=== PATIENT | female | born 1960 | race Caucasian/White ===

== ENCOUNTER 2019-06-18 11:56 | Emergency (ER) | payer MEDICARE, MEDICAID, SELFPAY ==
[2019-06-18 12:06] VITALS: BP 106/75; PULSE 88; RESP 20; TEMP 37.5; O2SAT 95; BMI 32.5
--- NOTE | 2019-06-18 14:05 | XRR_ITS ---
PROCEDURE INFORMATION: Exam: XR Chest, 1 View Exam date and time: 06/18/2019 2:33 PM Age: 58 years old Clinical indication: Cough TECHNIQUE: Imaging protocol: XR of the chest Views: 1 view. COMPARISON: CR Chest 2 views* [id number] 03/04/2013 5:14 PM FINDINGS: Lungs: There is a circumscribed 14 mm calcified density in the right upper lobe this finding was present on prior examination appears similar No consolidation. Pleural space: Unremarkable. No pleural effusion. No pneumothorax. Heart/Mediastinum: Unremarkable. No cardiomegaly. Bones/joints: Unremarkable. XR/XR chest 1V portable [id number] IMPRESSION: Stable right upper lobe density Otherwise of No acute findings.
[2019-06-18 14:53] LABS: Basophils % 0.6 %; Hematocrit 42.8 % (37.0-47.0); Hemoglobin 13.8 g/dL (11.5-15.3); Lymphocytes # 0.8 10^3/uL (0.8-4.8); Lymphocytes % 23.9 %; Mean Corpuscular HGB Conc 32.2 g/dL (30.0-36.0); Mean Corpuscular Hemoglobin 29.2 pg (28.0-34.0); Mean Corpuscular Volume 90.7 fL (81-99); Mean Platelet Volume 10.5 fL (7.4-10.4); Monocytes # 0.6 10^3/uL (0.2-0.9); Monocytes % 15.7 %; Neutrophils # 2.1 10^3/uL (1.8-7.7); Neutrophils % 59.5 %; Nucleated Red Blood Cells % 0 %; Platelet Count 214 10^3/cmm (130-400); Red Blood Count 4.72 10^6/uL (4.1-5.3); Red Cell Distribution Width 12.9 % (12.1-15.1); White Blood Count 3.5 10^3/uL (4.0-10.0)
[2019-06-18 15:10] LABS: Alanine Aminotransferase 12 U/L (0-33); Albumin Level 4.6 g/dL (3.5-5.2); Alkaline Phosphatase 102 IU/L (35-105); Anion Gap 16.7 (5-19); Aspartate Amino Transferase 17 U/L (0-32); Blood Urea Nitrogen 5 mg/dL (6-20); Calcium 10.1 mg/dL (8.5-10.5); Carbon Dioxide 27 mmol/L (22-29); Chloride 97 mmol/L (98-107); Globulin 2.5 g/dL (1.3-4.6); Glomerular Filtration Rate 56.7 mL/min (90-130); Glucose 103 mg/dL (74-109); Lipase 22 U/L (13-60); Potassium 3.7 mmol/L (3.5-5.1); Sodium 137 mmol/L (136-145); Total Bilirubin 0.3 mg/dL (0.15-1.2); Total Protein 7.1 g/dL (6.6-8.7)
[2019-06-18 15:32] VITALS: BP 102/68; PULSE 78; RESP 14; TEMP 37.1; O2SAT 98
--- NOTE | 2019-06-18 15:40 | ED_ITS ---
HPI - General Adult General: Chief complaint: General Medical Stated complaint: Multiple complaints Time Seen by Provider: 06/18/19 15:32 History of Present Illness: HPI narrative: Patient comes in today with complaints of fatigue, malaise, body aches, cough, and changes in vision. Patient reports symptoms have been for the last 3 weeks with a cough. But over the last 2 to 4 days she has had increasing malaise and body aches. Patient appears mildly unwell. Patient appears in no pain at rest. Review of Systems Const: Reports: body aches Resp: Reports: non-productive cough Musc: Reports: joint pain PFSH ED PFSH: Statuses (acute, chronic, etc) shown below reflect problem list status as previously entered and may not be historically accurate Social History Smoking and tobacco status: former smoker Physical Exam Const: COMMON NORMALS: no apparent distress and oriented x3 GENERAL APPEARANCE: cooperative HENMT: COMMON NORMALS: normocephalic, external ears normal, EAC's normal, TM's normal bilaterally and external nose normal HEAD & SCALP: normal to inspection and normocephalic FACE & SINUS: normal facial exam NOSE: external nose normal GENERAL EAR: hearing not grossly impaired EXTERNAL EAR: Yes external ears normal EXTERNAL AUDITORY CANAL: EAC's normal TYMPANIC MEMBRANE: TM's normal bilaterally MOUTH: oral and palatal mucosa normal THROAT: posterior oropharynx normal Eye: COMMON NORMALS: PERRL and EOMs intact bilaterally PUPIL: Yes PERRL Neck/C-Spine: COMMON NORMALS: full ROM and no lymphadenopathy Lymph: LYMPHATIC: no lymphedema noted Chest: COMMONS NORMALS: inspection of chest normal and palpation of chest normal Resp: COMMON NORMALS: normal respiratory effort AUSCULTATION: wheezes and diminished lung sounds Cardio: COMMON NORMALS: regular rate and regular rhythm RATE: regular rate RHYTHM: regular rhythm GI: COMMON NORMALS: normal to inspection, nondistended, normoactive bowel sounds and non-tender : COMMON NORMALS: Yes no CVA tenderness BLADDER/KIDNEY EXAM: Yes no CVA tenderness Back/Pelvis: COMMON NORMALS: no CVA tenderness and thoracic and lumbar spine normal to inspection Extremity: COMMON NORMALS: normal to inspection GENERAL: No edema Neuro: COMMON NORMALS: oriented x3, moves all extremities and no focal motor deficits Psych: COMMON NORMALS: mental status grossly normal and cooperative Skin: COMMON NORMALS: no rashes or lesions noted GENERAL SKIN EXAM: no rashes or lesions noted Course Vital Signs: Vital signs: Vital Signs Temperature 98.7 F 06/18/19 15:32 Pulse Rate 78 06/18/19 15:32 Respiratory Rate 14 06/18/19 15:32 Blood Pressure 102/68 06/18/19 15:32 Pulse Oximetry 98 06/18/19 15:32 MDM - General Adult MDM Narrative: Medical decision making narrative: Patient comes in with cough and congestion for the last 3 weeks. Patient reports that she has had episodes of lightheadedness and with her coughing spells. Patient appears mildly unwell. Respirations are even lungs have wheezing and decreased breath sounds throughout. Skin is warm and dry color is pink. Vital signs are stable. With good pulse oxygenation. Differential diagnosis includes pneumonia, exacerbation of COPD, bronchitis, dehydration, urinary tract infection, sepsis. Laboratory values were insignificant. Chest x-ray noted no infiltrates. Recommended treatment for acute bronchitis secondary to COPD. Patient was given a dose of dexamethasone in the ER with doxycycline to follow. Patient was recommended to follow-up in 1 week with primary care and to continue with inhaler as directed. Patient reported understanding agreed to plan. Lab Data: Labs: Lab Results 06/18/19 06/18/19 06/18/19 Range/Units 14:43 14:43 15:40 WBC 3.5 L (4.0-10.0) 10^3/ uL RBC 4.72 (4.1-5.3) 10^6/u L Hgb 13.8 (11.5-15.3) g/dL Hct 42.8 (37.0-47.0) % MCV 90.7 (81-99) fL MCH 29.2 (28.0-34.0) pg MCHC 32.2 (30.0-36.0) g/dL RDW 12.9 (12.1-15.1) % Plt Count 214 (130-400) 10^3/c mm MPV 10.5 H (7.4-10.4) fL Neut % (Auto) 59.5 % Lymph % (Auto) 23.9 % [place] % (Auto) 15.7 % Eos % (Auto) 0.0 % Baso % (Auto) 0.6 % Neut # (Auto) 2.1 (1.8-7.7) 10^3/u L Lymph # (Auto) 0.8 (0.8-4.8) 10^3/u L [place] # (Auto) 0.6 (0.2-0.9) 10^3/u L Eos # (Auto) 0.0 (0.0-0.8) 10^3/u L Baso # (Auto) 0.0 (0.0-0.1) 10^3/u L Nucleated RBC % (a uto) 0 % Nucleated RBCs # 0.0 /100WBC Sodium 137 (136-145) mmol/L Potassium 3.7 (3.5-5.1) mmol/L Chloride 97 L (98-107) mmol/L Carbon Dioxide 27 (22-29) mmol/L Anion Gap 16.7 (5-19) BUN 5 L (6-20) mg/dL Creatinine 1.0 H (0.5-0.9) mg/dL GFR Calculation 56.7 L (90-130) mL/min Glucose 103 (74-109) mg/dL Calcium 10.1 (8.5-10.5) mg/dL Total Bilirubin 0.3 (0.15-1.2) mg/dL AST 17 (0-32) U/L ALT 12 (0-33) U/L Alkaline Phosphata se 102 (35-105) IU/L Total Protein 7.1 (6.6-8.7) g/dL Albumin 4.6 (3.5-5.2) g/dL Globulin 2.5 (1.3-4.6) g/dL Lipase 22 (13-60) U/L Urine Color Yellow (Yellow) Urine Appearance Sl hazy (CLEAR) Urine pH 5 (5-7) Ur Specific Gravit y 1.020 (1.005-1.030) Urine Protein 1+ H (Negative) Urine Glucose (UA) Norm (Normal) Urine Ketones Negative (Negative) Urine Occult Blood 3+ H (Negative) Urine Nitrate Negative (Negative) Urine Bilirubin Neg (NEGATIVE) Urine Urobilinogen Norm (Negative) mg/dL Ur Leukocyte Bianca ase Trace H (Negative) Urine RBC 15-25 H (0-2) /hpf Urine WBC 15-25 H (0-5) /hpf Ur Squamous Epith Cells 10-15 H (0-5) Urine Bacteria 1+ H (NONE) Hyaline Casts 0-4 H Urine Mucus 1+ Influenza Type A A g (Negative) POC Influenza B Ag (Negative) 06/18/19 Range/Units 15:40 WBC (4.0-10.0) 10^3/ uL RBC (4.1-5.3) 10^6/u L Hgb (11.5-15.3) g/dL Hct (37.0-47.0) % MCV (81-99) fL MCH (28.0-34.0) pg MCHC (30.0-36.0) g/dL RDW (12.1-15.1) % Plt Count (130-400) 10^3/c mm MPV (7.4-10.4) fL Neut % (Auto) % Lymph % (Auto) % [place] % (Auto) % Eos % (Auto) % Baso % (Auto) % Neut # (Auto) (1.8-7.7) 10^3/u L Lymph # (Auto) (0.8-4.8) 10^3/u L [place] # (Auto) (0.2-0.9) 10^3/u L Eos # (Auto) (0.0-0.8) 10^3/u L Baso # (Auto) (0.0-0.1) 10^3/u L Nucleated RBC % (a uto) % Nucleated RBCs # /100WBC Sodium (136-145) mmol/L Potassium (3.5-5.1) mmol/L Chloride (98-107) mmol/L Carbon Dioxide (22-29) mmol/L Anion Gap (5-19) BUN (6-20) mg/dL Creatinine (0.5-0.9) mg/dL GFR Calculation (90-130) mL/min Glucose (74-109) mg/dL Calcium (8.5-10.5) mg/dL Total Bilirubin (0.15-1.2) mg/dL AST (0-32) U/L ALT (0-33) U/L Alkaline Phosphata se (35-105) IU/L Total Protein (6.6-8.7) g/dL Albumin (3.5-5.2) g/dL Globulin (1.3-4.6) g/dL Lipase (13-60) U/L Urine Color (Yellow) Urine Appearance (CLEAR) Urine pH (5-7) Ur Specific Gravit y (1.005-1.030) Urine Protein (Negative) Urine Glucose (UA) (Normal) Urine Ketones (Negative) Urine Occult Blood (Negative) Urine Nitrate (Negative) Urine Bilirubin (NEGATIVE) Urine Urobilinogen (Negative) mg/dL Ur Leukocyte Bianca ase (Negative) Urine RBC (0-2) /hpf Urine WBC (0-5) /hpf Ur Squamous Epith Cells (0-5) Urine Bacteria (NONE) Hyaline Casts Urine Mucus Influenza Type A A g Negative (Negative) POC Influenza B Ag Negative (Negative) Discharge Plan Discharge Patient Disposition: Home, Self-Care Clinical Impression: Acute bronchitis due to infection Condition: Stable Prescriptions: New meclizine 25 mg tablet 25 mg PO TID PRN (Reason: dizziness) Qty: 20 RF: 0 doxycycline hyclate 100 mg tablet 100 mg PO BID 10 Days Qty: 20 RF: 0 No Action fluoxetine [Prozac] 40 mg capsule 40 mg PO QAM Qty: 30 RF: 3 alprazolam [Xanax XR] 3 mg tablet extended release 24 hr 3 mg PO QAM Qty: 30 RF: 3 Discharge Orders: Discharge Order (Routine); Ordered 06/18/19 Ordered By: Clyde Gay Referrals: Kamran Jiang MD [Primary Care Provider] - Discharge Diet: Usual diet Discharge Activity: Increase activity as tolerated Activity Restrictions/Additional Instructions: Drink plenty of fluids Activity as tolerated Healthy diet Stop smoking Use inhaler as directed Follow-up with primary care Coding Level of Care Code ED Certified Personal Finance Counselor for Chg Fwd Exam Problem Focused
[2019-06-18 15:59] LABS: Glucose Urine UA Norm (Normal); Ketones Urine Negative (Negative); Protein Urine 1+ (Negative); Urine Appearance SL Hazy (CLEAR); Urine Color Yellow (Yellow); pH Urine 5 (5-7)
[2019-06-18 16:00] LABS: Add Urine Microscopic? YES; Bilirubin Urine Neg (NEGATIVE); Blood Urine 3+ (Negative); Leukocyte Esterase Urine Trace (Negative); Nitrate Urine Negative (Negative); Urobilinogen Urine Norm (Negative)
[2019-06-18 16:07] LABS: Hyaline Casts Urine 0-4; Mucus Urine 1+
[2019-06-18 16:09] LABS: Bacteria Urine 1+; RBC Urine 15-25 /hpf (0-2); WBC Urine 15-25 /hpf (0-5)
[2019-06-18 16:10] LABS: Add Urine Culture? Yes
[2019-06-18] MEDS: dexamethasone 10 mg/mL INJ IM (16:25)
[2019-06-18] MEDS: doxycycline 100 mg Tablet PO (16:28)
[2019-06-18 16:44] LABS: Influenza A by IFA Negative (Negative); Influenza B by IFA Negative (Negative)
[2019-06-18 17:13] VITALS: BP 102/78; PULSE 80; RESP 14; TEMP 36.4; O2SAT 99
== END 2019-06-18 16:30 | disposition home or self-care (01) ==
PROVIDERS: Emergency Medicine; Emergency Provider Nurse Practitioner Family; Family Provider Family Medicine; PCP Family Medicine
DX: J20.8 Acute bronchitis due to other specified organisms (principal); Z87.891 Personal history of nicotine dependence
CPT/HCPCS: 36415; 71045; 80053; 81001; 83690; 85025; 87086; 87804; 96372; 99282; J1100

== ENCOUNTER → 2019-06-29 09:51 | Outpatient (BNVA) | payer MEDICARE, MEDICAID, SELFPAY | PROVIDERS: Family Provider Family Medicine; PCP Family Medicine; Visit Provider Psychiatry & Neurology Psychiatry | DX: F33.42 Major depressive disorder, recurrent, in full remission (principal); F41.0 Panic disorder [episodic paroxysmal anxiety]; F17.200 Nicotine dependence, unspecified, uncomplicated | CPT/HCPCS: 99213 ==

== ENCOUNTER 2019-06-29 11:11 | Emergency (ER) | payer MEDICARE, MEDICAID, SELFPAY | END 2019-06-29 11:38 | disposition left against medical advice (07) | LOC: ER 15:01 | PROVIDERS: Emergency Provider Physician Assistant; Family Provider Family Medicine; PCP Family Medicine | DX: F33.9 Major depressive disorder, recurrent, unspecified (principal); F41.0 Panic disorder [episodic paroxysmal anxiety]; F17.200 Nicotine dependence, unspecified, uncomplicated; Z53.21 Procedure and treatment not carried out due to patient leaving prior to being seen by health care provider | CPT/HCPCS: 99281 ==

== ENCOUNTER → 2019-09-27 07:25 | Outpatient (BNVA) | payer MEDICARE, MEDICAID, SELFPAY | PROVIDERS: Family Provider Family Medicine; PCP Family Medicine; Visit Provider Psychiatry & Neurology Psychiatry | DX: F33.42 Major depressive disorder, recurrent, in full remission (principal); F41.0 Panic disorder [episodic paroxysmal anxiety]; F17.200 Nicotine dependence, unspecified, uncomplicated | CPT/HCPCS: 99213 ==

== ENCOUNTER 2019-10-12 10:09 | Outpatient (CLI) | payer MEDICARE, MEDICAID, SELFPAY ==
--- NOTE | 2019-10-12 10:17 | XR_ITS ---
WS: [id number] LEFT HIP HISTORY: hip pain COMPARISON: None available. LEFT hip: No acute fracture or dislocation. No significant narrowing of the joint space. No bone dest ruction. Mild inferior LEFT SI joint sclerosis. XR/XR hip LT 2-3V wo/w pel* [id number] IMPRESSION: 1. No hip fracture. 2. No significant arthritis LEFT hip.
== END 2019-10-12 10:10 | disposition home or self-care (01) ==
LOC: RADWPI 10:14
PROVIDERS: Family Provider Family Medicine; PCP Family Medicine; Visit Provider Family Medicine
DX: M25.552 Pain in left hip (principal)
CPT/HCPCS: 73502

== ENCOUNTER 2019-12-03 20:15 | Emergency (ER) | payer MEDICARE, MEDICAID, SELFPAY ==
--- NOTE | 2019-12-03 20:18 | XRR_ITS ---
PROCEDURE INFORMATION: Exam: XR Right Shoulder Exam date and time: 12/03/2019 8:18 PM Age: 59 years old Clinical indication: Right; Patient HX: RT shoulder pain, states she was moving furniture on November 23 and injured shoulder. ; Additional info: Injury TECHNIQUE: Imaging protocol: XR Right shoulder. Views: 2 or more views. COMPARISON: No relevant prior studies available. FINDINGS: Bones/joints: Normal. Heart/Mediastinum: Calcified right hilar nodes and/or mediastinal nodes and/or lung granulomas consistent with old granulomatous disease. Soft tissues: Normal. XR/XR shoulder RT min 2V* [id number] IMPRESSION: No acute findings.
[2019-12-03 20:29] VITALS: BP 132/63; PULSE 66; RESP 14; TEMP 37; O2SAT 98; BMI 32.8
--- NOTE | 2019-12-03 20:35 | ED_ITS ---
HPI - Neck Pain/Injury General: Chief Complaint: Neck Pain/Injury Stated Complaint: NECK PAIN; R SHOULDER PAIN Time Seen by Provider: 12/03/19 20:35 Source: patient Mode of arrival: ambulatory Limitations: no limitations History of Present Illness: HPI Narrative: Patient comes in with neck pain radiating into her right shoulder since 23 November. Patient states that she had moved some furniture by her self and since that time is had had shoulder and neck pain. Patient reports movement of her neck is limited due to the pain. Patient has normal range of motion of the right shoulder. Patient has been taking meloxicam, hydrocodone, and tizanidine with minimal relief. Patient appears well. Patient appears in mild to moderate pain. Review of Systems General: Reports: 10 or more systems reviewed and unremarkable except in HPI and below Musc: Reports: neck pain COUNTS INCLUDE 234 BEDS AT THE [facility] ED PFSH: Medical History (Updated 12/03/19 @ 21:18 by JEMIMA Ramirez) Current every day smoker Major depressive disorder, recurrent, in full remission Panic disorder [episodic paroxysmal anxiety] Social History Smoking and tobacco status: former smoker Physical Exam Const: COMMON NORMALS: no acute distress and patient oriented x3 GENERAL APPEARANCE: cooperative HENMT: COMMON NORMALS: normocephalic, TM's normal bilaterally and Normal external nose present HEAD & SCALP: normal to inspection and normocephalic NOSE: Normal external nose present TYMPANIC MEMBRANE: TM's normal bilaterally MOUTH: Normal oral and palatal mucosa present THROAT: posterior oropharynx normal Eye: GENERAL EYE: appearance normal, both eyes and all related structures Neck/C-Spine: CERVICAL SPINE: Yes Paracervical muscle tenderness right and Yes Trapezius muscle tenderness right Lymph: LYMPHATIC: no lymphadenopathy noted Chest: COMMONS NORMALS: normal inspection of the chest Resp: COMMON NORMALS: normal respiratory effort EFFORT & INSPECTION: Yes able to speak in complete sentences Cardio: COMMON NORMALS: regular rate and regular rhythm RATE: regular rate RHYTHM: regular rhythm GI: COMMON NORMALS: non-tender Back/Pelvis: COMMON NORMALS: thoracic and lumbar spine normal to inspection Extremity: COMMON NORMALS: normal to inspection Neuro: COMMON NORMALS: patient oriented x3 and moves all extremities Psych: COMMON NORMALS: mental status grossly normal and cooperative Skin: COMMON NORMALS: no rashes or lesions noted GENERAL SKIN EXAM: no rashes or lesions noted Course Vital Signs: Vital signs: Vital Signs Temperature 98.6 F 12/03/19 20:29 Pulse Rate 66 12/03/19 20:29 Respiratory Rate 14 12/03/19 20:29 Blood Pressure 132/63 12/03/19 20:29 Pulse Oximetry 98 12/03/19 20:29 MDM - Neck Pain/Injury MDM Narrative: Medical decision making narrative: She comes in for persistent right sided neck and trapezius pain for about 10 days. On exam patient has guarded range of motion of the neck. Palpable tenderness of the cervical spine paraspinous muscle, and trapezius on the right side. Patient moves extremities well otherwise. Respirations are even lungs are clear to auscultation. Vital signs are normal. Differential diagnosis includes but not limited to muscle strain, facet arthropathy, intervertebral disc disease, malingering. X-ray of the shoulder was negative for any abnormality. Patient was given a dose of ketorolac and orphenadrine in the emergency room to follow with diclofenac and cyclobenzaprine for pain. Patient was recommended to hold meloxicam and tizanidine while using the 2 new prescriptions. Patient reported understanding of care plan and need for follow-up. Discharge Plan Discharge Patient Disposition: Home, Self-Care Clinical Impression: Cervical radiculopathy Condition: Stable Prescriptions: New diclofenac potassium 50 mg tablet 50 mg PO TID PRN (Reason: pain) Qty: 14 RF: 0 cyclobenzaprine 10 mg tablet 10 mg PO TID Qty: 14 RF: 0 No Action omeprazole 20 mg capsule,delayed release(DR/EC) 20 mg PO BID RF: 0 triamcinolone acetonide 0.1 % ointment 1 applic TOPICAL DAILY Qty: 30 RF: 0 tizanidine [Zanaflex] 2 mg capsule 2 mg PO TID PRN (Reason: muscle spasticity) Qty: 20 RF: 0 multivitamin Tablet 1 tab PO DAILY RF: 0 alprazolam [Xanax XR] 3 mg tablet extended release 24 hr 3 mg PO QAM Qty: 30 RF: 3 fluoxetine [Prozac] 40 mg capsule 40 mg PO QAM Qty: 30 RF: 3 meloxicam 15 mg tablet 15 mg PO DAILY Qty: 30 RF: 3 hydrocodone-acetaminophen 5-325 mg tablet 1 tab PO Q12H PRN (Reason: pain) 30 Days Qty: 50 RF: 0 meclizine 25 mg tablet 25 mg PO TID PRN (Reason: dizziness) Qty: 20 RF: 0 Discharge Orders: Discharge Order (Routine); Ordered 12/03/19 Ordered By: Clyde Gay Referrals: Kamran Jiang MD [Primary Care Provider] - Discharge Diet: Usual diet Discharge Activity: Increase activity as tolerated Patient Instructions: Cervical Spine Strain (ED) Activity Restrictions/Additional Instructions: Drink plenty of water with medication. Gentle range of motion and stretching exercises. Sleep on a towel roll for extra neck support. Increase activity as tolerated. Take medications as directed. Follow-up with primary care in 1 week. Return to the ER for worsening symptoms or high fever. Coding Level of Care Code ED Retail Support Specialist for Tameka Fwrush Exam Comprehensive
[2019-12-03] MEDS: orphenadrine 30 mg/mL Inj 2 mL 60 MG IM (20:52)
[2019-12-03] MEDS: ketorolac 30 mg/mL INJ IM (20:52)
[2019-12-03 21:33] VITALS: BP 135/69; PULSE 78; RESP 16; O2SAT 78
== END 2019-12-03 21:35 | disposition home or self-care (01) ==
PROVIDERS: Emergency Provider Nurse Practitioner Family; Family Provider Family Medicine; PCP Family Medicine
DX: M54.12 Radiculopathy, cervical region (principal); Z87.891 Personal history of nicotine dependence
CPT/HCPCS: 12345; 73030; 96372; 99282; 99283; J1885; J2360

== ENCOUNTER 2019-12-21 12:53 | Outpatient (CLI) | payer MEDICARE, MEDICAID, SELFPAY ==
--- NOTE | 2019-12-21 14:00 | MR_ITS ---
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 Mild straightening of the normal cervical lordosis. Signal within the cervical cord is normal. Visualized posterior fossa is unremarkable. Craniocervical junction, C1 and C2 relationship, odontoid process and soft tissues are normal. C2-C3: Normal. C3-C4: Mild osteophytic ridging and annular disc bulging. Mild flattening of the ventral thecal sac. Moderate RIGHT foraminal stenosis due to disc osteophyte disease. Mild central stenosis. C4-C5: Mild annular disc bulging and osteophytic ridging. Near complete effacement of ventral CSF. Mi ld bilateral foraminal stenosis predominantly due to osteophyte disease. C5-C6: Mild osteophytic ridging and annular disc bulging. Disc osteophyte disease extends into the ayala barticular recesses and foramen. Mild central stenosis with moderate to severe bilateral foraminal st enosis. C6-C7: Mild annular disc bulging and small osteophytes. No significant stenosis. C7-T1: Normal. Paraspinal soft tissue are normal. MR/MR cervical spin wo con* [id number] IMPRESSION: 1. Mild central stenosis with moderate to severe bilateral foraminal stenosis at C5-6 due to disc osteophyte disease. 2. Mild central with moderate RIGHT foraminal stenosis at C3-4. 3. Mild central and bilateral foraminal stenosis at C4-5.
== END 2019-12-21 12:54 | disposition home or self-care (01) ==
LOC: RADWPI 12:59
PROVIDERS: Family Provider Family Medicine; PCP Family Medicine; Visit Provider Family Medicine
DX: M50.023 Cervical disc disorder at C6-C7 level with myelopathy (principal); M48.02 Spinal stenosis, cervical region
CPT/HCPCS: 72141

== ENCOUNTER → 2020-01-05 14:37 | Outpatient (BNVA) | payer MEDICARE, MEDICAID, SELFPAY | PROVIDERS: Family Provider Family Medicine; PCP Family Medicine; Visit Provider Licensed Practical Nurse | DX: M48.02 Spinal stenosis, cervical region (principal); M50.020 Cervical disc disorder with myelopathy, mid-cervical region, unspecified level | CPT/HCPCS: 99214 ==

== ENCOUNTER 2020-01-06 09:48 | Outpatient (CLI) | payer MEDICARE, MEDICAID, SELFPAY ==
--- NOTE | 2020-01-06 09:57 | CT_ITS ---
WS: [id number] CT CERVICAL SPINE TECHNIQUE: Noncontrast CT of the cervical spine with coronal and sagittal reformatted images. CLINICAL INFORMATION: Neck pain COMPARISON: MRI December 21, 2019 DLP: 662.[address] scans at [facility] use at least one of these dose optimization techniques: automat ed exposure control; mA and/or kV adjustment per patient size (includes targeted exams where dose is matched to clinical indication); or iterative reconstruction. FINDINGS: Straightening with slight reversal normal cervical lordosis. Disc bulging worse at C3-C4 C4-C5 and C5 -C6. No high-grade central canal stenosis. C2-C3: Normal. C3-C4: Mild disc osteophytic ridging. Moderate right foraminal narrowing. Mild facet arthropathy. Sha llow right pericentral protrusion with mild central canal stenosis. C4-C5: Disc osteophyte complex with endplate ridging. Mild central canal stenosis. Mild bilateral for aminal narrowing. C5-C6: Disc osteophyte complex with endplate ridging. Moderate central canal stenosis. Slight contact of the cervical cord. Severe bilateral bony foraminal narrowing. Moderate facet arthropathy. C6-C7: No significant disc bulging. Mild left and no significant right foraminal narrowing. Mild face t arthropathy. Spinal canal is patent. C7-T1: Normal Mild right T1-2 and left T2-[address]/CT cervical spin wo con* [id number] IMPRESSION: 1. Straightening with slight reversal normal cervical lordosis. 2. Moderate central canal stenosis C5-C6 due to disc osteophyte complex and sl ight contact of the cervical cord. 3. Moderate to severe bilateral bony foraminal narrowing C5-C6 appears unchang ed. 4. Small right pericentral protrusions at C3-C4 and C4-C5 with mild central ca nal stenosis. 5. Otherwise mild bony foraminal narrowing described above.
--- NOTE | 2020-01-06 10:30 | XRR_ITS ---
PROCEDURE INFORMATION: Exam: XR Cervical Spine, 2 or 3 Views Exam date and time: 01/06/2020 10:19 AM Age: 59 years old Clinical indication: Pain in neck transient tingling sensation TECHNIQUE: Imaging protocol: XR of the cervical spine, 2 or 3 views. COMPARISON: MR cervical spin wo con* [id number] 12/21/2019 2:02 PM FINDINGS: Vertebrae: The cervical vertebral bodies maintain height. No malalignment in the neutral position or in extension. Flexion occurs primarily at C4-C5. No spondylolisthesis. The spinolaminar line is intact. The facets align normally. There is disc degeneration at C5-C6. The atlantodens interval is not widened. No acute fracture. Soft tissues: No prevertebral soft tissue swelling. XR/XR cervical spine fl/ex [id number] IMPRESSION: Disc degeneration at C5-C6.
== END 2020-01-06 09:49 | disposition home or self-care (01) ==
LOC: RAD 09:54
PROVIDERS: PCP Family Medicine; Visit Provider Licensed Practical Nurse
DX: M50.322 Other cervical disc degeneration at C5-C6 level (principal); M48.02 Spinal stenosis, cervical region; M25.78 Osteophyte, vertebrae; M50.21 Other cervical disc displacement, high cervical region
CPT/HCPCS: 72040; 72125; 99214

== ENCOUNTER → 2020-01-25 08:30 | Outpatient (BNVA) | payer MEDICARE, MEDICAID, SELFPAY | PROVIDERS: PCP Family Medicine; Visit Provider Psychiatry & Neurology Psychiatry | DX: F41.0 Panic disorder [episodic paroxysmal anxiety] (principal); F33.42 Major depressive disorder, recurrent, in full remission; F17.200 Nicotine dependence, unspecified, uncomplicated | CPT/HCPCS: 99213 ==

== ENCOUNTER → 2020-05-23 07:32 | Outpatient (BNVA) | payer MEDICARE, MEDICAID, SELFPAY | PROVIDERS: PCP Family Medicine; Visit Provider Psychiatry & Neurology Psychiatry | DX: F33.42 Major depressive disorder, recurrent, in full remission (principal); F41.0 Panic disorder [episodic paroxysmal anxiety] | CPT/HCPCS: 99213 ==

== ENCOUNTER 2020-06-15 12:38 | Outpatient (CLI) | payer MEDICARE, MEDICAID, SELFPAY ==
--- NOTE | 2020-06-15 13:15 | XR_ITS ---
WS: [id number] PROCEDURE: XR chest 2V* [id number] CLINICAL INFORMATION: abnormal chest xray COMPARISON: June 18, 2019. Reported prominence of the left hilum on outside radiographa FINDINGS: Heart: Normal cardiac silhouette. Lungs: Moderate chronic emphysematous changes. Slight prominence of the left hilum similar to June 18, 2019. This may be vascular but could be further evaluated with chest CT. Chronic calcified granu radha right upper lobe unchanged. No acute pulmonary infiltrates. Aortic calcification. Bones: Mild thoracic kyphosis. Mild thoracic curve convex right. Postoperative changes lower cervical spine. XR/XR chest 2V* [id number] IMPRESSION: 1. Moderate chronic emphysematous changes. No acute pulmonary infiltrates. 2. Slight prominence of the left hilum similar to June 18, 2019. This may b e vascular but indeterminant. This can be further evaluated with chest CT for b avinash anatomic detail. 3. Stable calcified chronic granuloma right upper lobe.
== END 2020-06-15 12:39 | disposition home or self-care (01) ==
LOC: RADWPI 12:41
PROVIDERS: PCP Family Medicine; Visit Provider Family Medicine
DX: R93.89 Abnormal findings on diagnostic imaging of other specified body structures (principal); J84.10 Pulmonary fibrosis, unspecified
CPT/HCPCS: 71046

== ENCOUNTER → 2020-07-06 11:08 | Outpatient (BNVA) | payer MEDICARE, MEDICAID, SELFPAY | PROVIDERS: PCP Family Medicine; Visit Provider Surgery | DX: Z20.822 Contact with and (suspected) exposure to COVID-19 (principal); D17.1 Benign lipomatous neoplasm of skin and subcutaneous tissue of trunk; Z12.11 Encounter for screening for malignant neoplasm of colon | CPT/HCPCS: 87635 ==

== ENCOUNTER 2020-07-10 07:23 | Day surgery (SDC) | payer MEDICARE, MEDICAID, SELFPAY ==
[2020-07-07 14:31] VITALS: BMI 31.4
[2020-07-10 07:50] VITALS: BP 104/77; PULSE 78; RESP 18; TEMP 36.3; O2SAT 97
--- NOTE | 2020-07-10 07:54 | PC.NURSE ---
PT STATES PREP RETURN WAS BROWN WATER.
--- NOTE | 2020-07-10 07:58 | W.PM.OPSUD ---
Surgery/Procedure H&P Update DATE OF PROCEDURE: July 10, 2020 DATE H&P PERFORMED: 06/30/20 H&P UPDATE INFORMATION: I have reviewed H&P completed within last 30 days, I have examined patient prior to procedure and No changes to prior documentation PREOP DIAGNOSIS: Lipoma, screening PLANNED PROCEDURE: Operation Date: 07/10/20 09:30 Proposed Procedures p Colonoscopy [id number] Z12.11 D17.1(Not Applicable) - Elio Ricketts MD s Excision of lipomas to forearm back and forehad 66412 Z12.11 D17.1(Not Applicable) - Elio Ricketts MD
[2020-07-10] MEDS: sodium chloride 0.9% 1,000 ML 30 ML IV (08:19)
--- NOTE | 2020-07-10 08:37 | ANES.PREANE2 ---
Pre-Anesthetic Assessment Pre-Anesthetic Assessment: Height/Weight: Height 1.75 m Weight 96.615 kg Temp Pulse Resp BP Pulse Ox 97.4 F L 78 18 104/77 97 07/10/20 07:50 07/10/20 07:50 07/10/20 07:50 07/10/20 07:50 07/10/20 07:50 Preop Diagnosis: Lipoma, screening Proposed Procedure: Operation Date: 07/10/20 09:30 Proposed Procedures p Colonoscopy 69709 88355 Z12.11 D17.1(Not Applicable) - Elio Ricketts MD s Excision of lipomas to forearm back and forehad 63875 Z12.11 D17.1(Not Applicable) - Elio Ricketts MD Familial anesthetic complications: None Was Beta Chata taken within 24 hours: N/A Last intake: Intake Last Liquid Date 07/09/20 Last Liquid Time 19:30 Last Solid Date 07/09/20 Last Solid Time 12:00 Social: Social History: No alcohol and No tobacco Comment: former smoker, currently vapes Exam: Pre-Anes Outpt Exam: alert, oriented x 3, clear to auscultation bilaterally and regular rate & rhythm Airway: MP: 3 Dentition: Other (missing, discolored teeth) Pulmonary: Comments: emphysema GI: GI: GERD Anesthetic Plan: ASA status: 2 Anesthesia: MAC Risk of > 500 ml blood loss (7ml/kg in children): No Meds/Allergies Current Medications: Current Medications Generic Name Dose Route Start Last Admin Trade Name Freq PRN Reason Stop Dose Admin Sodium Chloride 1,000 mls @ 30 ml s/hr 07/10/20 07:45 07/10/20 08:19 Sodium Chloride 0.9% IV 07/11/20 07:44 30 mls/hr .Q24H ROBERTO Administration PFSH Anesthesia PFSH: Medical History (Updated 06/30/20 @ 09:52 by Elio Ricketts MD) Eroded bladder suspension mesh Major depressive disorder, recurrent, in full remission Panic disorder [episodic paroxysmal anxiety] Stenosis of cervical spine with myelopathy Surgical History History of cholecystectomy History of total hysterectomy Family History Brother Cancer Father Cancer Social History Smoking and tobacco status: former smoker Alcohol intake: never Household members: family Marital status: Current occupational status: disabled History of recent travel: No Data Anesthesia Cardiac Studies: No Data to Display
[2020-07-10 12:12] VITALS: BP 131/77; PULSE 72; RESP 16; TEMP 36.3; O2SAT 96
[2020-07-10 12:36] VITALS: BP 123/80; PULSE 61; RESP 18; O2SAT 99
--- NOTE | 2020-07-10 12:53 | P.OP_ITS ---
Operative Report Date of procedure: July 10, 2020 Pre-op Diagnosis: 1. Screening colonoscopy 2. Lipoma right upper back measuring 2 x 2 cm 3. Lipoma right lower back measuring 4 x 4 cm 4. Lipoma right forearm measuring 2 x 2 cm 5. Lipoma right temporal area measuring 3 x 3 cm Post-op Diagnosis: 1. Normal colonoscopy, except internal hemorrhoids and hyperplastic polyps in the rectum 2. Lipoma right upper back measuring 2 x 2 cm 3. Lipoma right lower back measuring 4 x 4 cm 4. Lipoma right forearm measuring 2 x 2 cm 5. Lipoma right temporal area measuring 3 x 3 cm Procedure Done: 1. Colonoscopy past clinic flexure without biopsy 2. Excision of lipoma right upper back measuring 2 x 2 cm 3. Excision of lipoma right lower back measuring 4 x 4 cm 4. Excision of lipoma right forearm measuring 2 x 2 cm 5. Excision of lipoma right temporal area measuring 3 x 3 cm Specimens removed/disposition: 1. lipoma right upper back measuring 2 x 2 cm 2. lipoma right lower back measuring 4 x 4 cm 3. lipoma right forearm measuring 2 x 2 cm 4. lipoma right temporal area measuring 3 x 3 cm Surgeon: Elio Ricketts Anesthesia: General Condition: stable Disposition: same day Procedure: The patient was taken to the operating room and placed in left lateral position under MAC a digital rectal exam revealed small internal hemorrhoids. The colonoscope was introduced and advanced up to cecum with ileocecal valve and appendicular orifice was visualized. The colon prep was fair. Cecum: Normal Ascending colon: Normal Transverse colon: Normal Descending colon: Normal Sigmoid colon: Normal Rectum: Couple of hyperplastic polyps Internal hemorrhoids on retroflexion The colonoscope was withdrawn. The area around the 4 subcutaneous masses on the back, right temporal area and right forearm was prepped and draped in a sterile manner. 1% lidocaine with 0.5% Marcaine was infiltrated around the lipoma on right upper back. Using 15 blade a 2 cm incision was made, subcutaneous tissue was divided using electrocautery and the lipoma was excised from the surrounding subcutaneous tissue and sent to pathology. Wound was irrigated, hemostasis ensured and subcutaneous tissues approximated using running 3-0 Vicryl suture and skin was closed using running subcuticular 4-0 Monocryl suture and surgical glue. 1% lidocaine with 0.5% Marcaine was infiltrated around the lipoma on right lower back. Using 15 blade a 4 cm incision was made, subcutaneous tissue was divided using electrocautery and the lipoma was excised from the surrounding subcutaneous tissue and sent to pathology. Wound was irrigated, hemostasis ensured and subcutaneous tissues approximated using running 3-0 Vicryl suture and skin was closed using running subcuticular 4-0 Monocryl suture and surgical glue. 1% lidocaine with 0.5% Marcaine was infiltrated around the lipoma. Using 15 blade a 2 cm incision was made, subcutaneous tissue was divided using electrocautery and the lipoma was excised from the surrounding subcutaneous tissue and sent to pathology. Wound was irrigated, hemostasis ensured and subcutaneous tissues approximated using running 3-0 Vicryl suture and skin was closed using running subcuticular 4-0 Monocryl suture and surgical glue. 1% lidocaine with 0.5% Marcaine was infiltrated around the lipoma. Using 15 blade a 3 cm incision was made, subcutaneous tissue was divided using electroca utery and the lipoma was excised from the surrounding subcutaneous tissue and sent to pathology. Wound was irrigated, hemostasis ensured and subcutaneous tissues approximated using running 3-0 Vicryl suture and skin was closed using running subcuticular 4-0 Monocryl suture and surgical glue.
--- NOTE | 2020-07-10 15:55 | ANE.PACU2 ---
Inpatient post-anesthesia follow up: Airway intact: Yes Vital signs: Temperature 97.3 F Pulse Rate 61 Respiratory Rate 18 Blood Pressure 123/80 Pulse Oximetry 99 Oxygen Delivery Me thod Room Air Oxygen Flow Rate Fraction of Inspir ed Oxygen Hydration adequate: Yes Nausea and vomiting: No Pain level: 2 Mental status: Baseline
== END 2020-07-10 12:56 | disposition home or self-care (01) ==
PROVIDERS: PCP Family Medicine; Visit Provider Surgery
PROC: 0DJD8ZZ Inspection of Lower Intestinal Tract, Via Natural or Artificial Opening Endoscopic (ICD-10-PCS; CPT 45378; principal; 2020-07-10 09:30)
PROC: (CPT 11402; 2020-07-10 09:30)
DX: Z12.11 Encounter for screening for malignant neoplasm of colon (principal); D12.8 Benign neoplasm of rectum; K64.8 Other hemorrhoids; D17.1 Benign lipomatous neoplasm of skin and subcutaneous tissue of trunk; D17.21 Benign lipomatous neoplasm of skin and subcutaneous tissue of right arm; D17.0 Benign lipomatous neoplasm of skin and subcutaneous tissue of head, face and neck; J43.9 Emphysema, unspecified; Z87.891 Personal history of nicotine dependence
CPT/HCPCS: 11402 ×2; 11404; 11443; 12034; 45378; 88304; J2704; J3010; J3490; J7030

== ENCOUNTER → 2020-09-05 07:27 | Outpatient (BNVA) | payer MEDICARE, MEDICAID, SELFPAY | PROVIDERS: PCP Family Medicine; Visit Provider Psychiatry & Neurology Psychiatry | DX: F33.42 Major depressive disorder, recurrent, in full remission (principal); F41.0 Panic disorder [episodic paroxysmal anxiety]; F17.200 Nicotine dependence, unspecified, uncomplicated | CPT/HCPCS: 99213 ==

== ENCOUNTER → 2020-11-02 12:01 | Outpatient (BNVA) | payer MEDICARE, MEDICAID, SELFPAY | PROVIDERS: PCP Family Medicine; Visit Provider Family Medicine | DX: F33.42 Major depressive disorder, recurrent, in full remission (principal); M54.12 Radiculopathy, cervical region; M50.00 Cervical disc disorder with myelopathy, unspecified cervical region; L01.00 Impetigo, unspecified; M23.206 Derangement of unspecified meniscus due to old tear or injury, right knee | CPT/HCPCS: 80053; 85025 ==

== ENCOUNTER 2020-12-25 11:04 | Outpatient (CLI) | payer MEDICARE, MEDICAID, SELFPAY ==
--- NOTE | 2020-12-25 11:00 | MM_ITS ---
WS: [id number] BILATERAL DIGITAL SCREENING MAMMOGRAPHY WITH CAD CLINICAL INFORMATION: screening HISTORY: Screening mammogram. No current complaints. History of left lumpectomy. COMPARISON: 3 ,019 and 1 ,019. TECHNIQUE: Bilateral CC and MLO views. FINDINGS: Scattered fibroglandular densities bilaterally. Stable ovoid densities left retroareola unchanged sin ce 2019. No suspicious focal mass, asymmetry, calcifications, or architectural distortion. No evidenc e of malignancy. MM/[place] [id number] IMPRESSION: BI-RADS: 2-Benign FOLLOW UP: 1 Year Follow-up Recommend return to annual screening mammography.
== END 2020-12-25 11:05 | disposition home or self-care (01) ==
PROVIDERS: PCP Family Medicine; Visit Provider Family Medicine
DX: Z12.31 Encounter for screening mammogram for malignant neoplasm of breast (principal)
CPT/HCPCS: 77067

== ENCOUNTER 2021-01-01 13:38 | Emergency (ER) | payer MEDICARE, MEDICAID, SELFPAY ==
--- NOTE | 2021-01-01 13:47 | XRR_ITS ---
PROCEDURE INFORMATION: Exam: XR Chest Exam date and time: 01/01/2021 1:47 PM Age: 60 years old Clinical indication: Cough with hemorrhage; Additional info: Hemoptysis TECHNIQUE: Imaging protocol: XR of the chest. Views: 1 view. COMPARISON: CR XR chest 2V* [id number] 06/15/2020 1:01 PM FINDINGS: Lungs: Right upper lobe calcified granuloma. Emphysematous changes suspected. Pleural spaces: Unremarkable. No pleural effusion. No pneumothorax. Heart/Mediastinum: Unremarkable. No cardiomegaly. Vasculature: Prominent left hilar region again seen similar to prior exam may be vascular in nature, a chest CT could further characterize this as previously discussed. Bones/joints: Unremarkable. XR/XR chest 1V portable [id number] IMPRESSION: 1. Negative for infiltrate. 2. Right upper lobe calcified granuloma. 3. Prominent left hilar region again seen similar to prior exam may be vascular in nature, a chest CT could further characterize this as previously discussed. 4. Emphysematous changes suspected.
[2021-01-01 15:15] VITALS: BP 129/72; PULSE 74; RESP 17; TEMP 37; O2SAT 95
[2021-01-01 16:57] LABS: Basophils # 0.1 10^3/uL (0.0-0.1); Basophils % 1.3 %; Eosinophils % 0.4 %; Hematocrit 44.9 % (37.0-47.0); Hemoglobin 14.1 g/dL (11.5-15.3); Lymphocytes # 2.1 10^3/uL (0.8-4.8); Lymphocytes % 30.5 %; Mean Corpuscular HGB Conc 31.4 g/dL (30.0-36.0); Mean Corpuscular Hemoglobin 29.6 pg (28.0-34.0); Mean Corpuscular Volume 94.1 fL (81-99); Mean Platelet Volume 10.6 fL (7.4-10.4); Monocytes # 0.5 10^3/uL (0.2-0.9); Monocytes % 6.7 %; Neutrophils # 4.16 10^3/uL (1.8-7.7); Neutrophils % 60.8 %; Nucleated Red Blood Cells % 0 %; Platelet Count 282 10^3/cmm (130-400); Red Blood Count 4.77 10^6/uL (4.1-5.3); Red Cell Distribution Width 13.1 % (12.1-15.1); White Blood Count 6.9 10^3/uL (4.0-10.0)
[2021-01-01 17:31] LABS: Alanine Aminotransferase 9 U/L (0-33); Albumin Level 4.5 g/dL (3.5-5.2); Alkaline Phosphatase 104 IU/L (35-105); Aspartate Amino Transferase 13 U/L (0-32); Blood Urea Nitrogen 5 mg/dL (8-23); Calcium 9.2 mg/dL (8.5-10.5); Carbon Dioxide 29 mmol/L (22-29); Chloride 102 mmol/L (98-107); Globulin 2.1 g/dL (1.3-4.6); Glomerular Filtration Rate 101.6 mL/min (90-130); Glucose 84 mg/dL (65-115); Osmolality Calculated 286 mOsm/kg (285-295); Sodium 140 mmol/L (136-145); Total Bilirubin 0.5 mg/dL (0.15-1.2); Total Protein 6.6 g/dL (6.6-8.7)
[2021-01-01 17:55] LABS: Anion Gap 12.9 (5-19); Potassium 3.9 mmol/L (3.5-5.1)
--- NOTE | 2021-01-02 00:11 | CTR_ITS ---
PROCEDURE INFORMATION: Exam: CTA Chest With Contrast Exam date and time: 01/02/2021 12:11 AM Age: 60 years old Clinical indication: Cough and shortness of breath; Additional info: SOB TECHNIQUE: Imaging protocol: Computed tomographic angiography of the chest with contrast. 3D rendering (Not supervised by radiologist): MIP and/or 3D reconstructed images were created by the technologist. Radiation optimization: All CT scans at this facility use at least one of these dose optimization techniques: automated exposure control; mA and/or kV adjustment per patient size (includes targeted exams where dose is matched to clinical indication); or iterative reconstruction. Contrast material: OMNI 350; Contrast volume: 70 ml; Contrast route: INTRAVENOUS (IV); COMPARISON: CR XR chest 1V portable [id number] 01/01/2021 2:59 PM RADIATION DOSE METRICS: Total DLP (mGy-cm): 556.26 FINDINGS: Pulmonary arteries: Normal. No pulmonary emboli. Aorta: Unremarkable. No aortic aneurysm. No aortic dissection. Lungs: Subtle bilateral largely upper lobe airspace opacities may reflect an infectious process. Metastatic disease is not excluded given a 15 mm more solid nodular area in the right upper lobe. Pleural spaces: Unremarkable. No pneumothorax. No pleural effusion. Heart: Unremarkable. No cardiomegaly. No pericardial effusion. Lymph nodes: Multiple enlarged left hilar to mediastinal lymph nodes measuring up to 3.8 cm somewhat encasing the hilar structures likely reflecting an underlying malignant process. Bones/joints: Unremarkable. No acute fracture. Soft tissues: Gallbladder appears surgically absent. CT/CT angio chest PE protcl [id number] IMPRESSION: 1. Multiple enlarged left hilar to mediastinal lymph nodes measuring up to 3.8 cm somewhat encasing the hilar structures likely reflecting an underlying malignant process. 2. Subtle bilateral largely upper lobe airspace opacities may reflect an infectious process. Metastatic disease is not excluded given a 15 mm more solid nodular area in the right upper lobe. Highly suspicious nodule(s). Consider non-emergent PET/CT, or tissue sampling.(Reference: Dariel). 3. Gallbladder appears surgically absent. REFERENCES: Dariel Anthony et al. Guidelines for Management of Incidental Pulmonary Nodules Detected on CT Images: From the Fleischner Society 2017. Radiology. 2017;284(1):228-243. Radiation Dose CTDIVOL = (mGy): DLP = 556.26 (mGy-cm)
--- NOTE | 2021-01-02 00:15 | ED_ITS ---
HPI - SOB/Dyspnea General: Chief Complaint: Shortness of Breath/Dyspnea Stated Complaint: NUMBNESS IN ARMS/COUGHING BLOOD/CHILLS/HOT FLASHES Time Seen by Provider: 01/02/21 00:04 Source: patient Mode of arrival: ambulatory Limitations: no limitations History of Present Illness: HPI Narrative: 60-year-old female who states that she had a cough for the last 3 to 4 days with concerns today she started having some hemoptysis. She denies any shortness of breath or fevers. Patient states she had neck x-ray earlier this year and she is been having some numbness to bilateral hands for months but states that has been chronic and that is not her main concern states she is mainly concerned with hemoptysis. Denies any chest pain. Patient is comfortable here. Associated symptoms: Reports hemoptysis; Deny abdominal pain, chest pain, fever(s), nausea or vomiting Review of Systems Const: Denies: fever(s), chills, body aches or change in appetite Eyes: Denies: blurry vision or eye discomfort ENMT: Denies: throat pain or dental pain Card: Denies: chest pain Resp: Reports: dyspnea, productive cough and hemoptysis GI: Denies: abdominal pain, nausea, vomiting or diarrhea : Denies: dysuria Musc: Denies: neck pain or back pain Skin/Breast: Denies: rash Neuro: Denies: headache(s) Psych: Denies: depression Jovon/Lymph: Denies: easy bruising All/Imm: Denies: urticaria PFSH ED PFSH: Medical History Eroded bladder suspension mesh Major depressive disorder, recurrent, in full remission Panic disorder [episodic paroxysmal anxiety] Stenosis of cervical spine with myelopathy Surgical History History of cholecystectomy History of total hysterectomy Status post colonoscopy (07/10/20) normal Status post excision of lipoma (07/10/20) Right forearm, back x2, right forehead Family History Brother Cancer Father Cancer Social History Smoking and tobacco status: former smoker Alcohol intake: never Household members: family Marital status: Current occupational status: disabled History of recent travel: No Physical Exam Const: COMMON NORMALS: no acute distress, patient oriented x3 and healthy appearing HENMT: COMMON NORMALS: normocephalic and atraumatic HEAD & SCALP: normocephalic and atraumatic Eye: COMMON NORMALS: Equal, round and reactive pupils present and EOMs intact bilaterally PUPIL: Yes Equal, round and reactive pupils present Neck/C-Spine: COMMON NORMALS: full ROM and supple Chest: COMMONS NORMALS: normal inspection of the chest and normal palpation of entire chest wall Resp: COMMON NORMALS: normal respiratory effort, No retractions, No use of accessory muscles and clear to auscultation bilaterally AUSCULTATION: clear to auscultation bilaterally Cardio: COMMON NORMALS: regular rate, regular rhythm and No murmurs present (Cardio) RATE: regular rate RHYTHM: regular rhythm GI: COMMON NORMALS: Normal to inspection, nondistended, normoactive bowel sounds present, Soft to palpation, non-tender and no masses PALPATION: Yes Soft to palpation Extremity: COMMON NORMALS: normal to inspection and full ROM Neuro: COMMON NORMALS: patient oriented x3, moves all extremities and no focal motor deficits Psych: COMMON NORMALS: mental status grossly normal, Normal thought process pr esent and cooperative THOUGHT PROCESS: Normal thought process present Skin: COMMON NORMALS: no rashes or lesions noted and no wounds GENERAL SKIN EXAM: no rashes or lesions noted Course Vital Signs: Vital signs: Vital Signs Temperature 98.6 F 01/01/21 15:15 Pulse Rate 74 01/01/21 15:15 Respiratory Rate 17 01/01/21 15:15 Blood Pressure 129/72 01/01/21 15:15 Pulse Oximetry 95 01/01/21 15:15 MDM - SOB/Dyspnea MDM Narrative: Medical decision making narrative: 60-year-old female presents here with hemoptysis with CT concerning for a mass with possible cancer. I informed her of her this formed I will get her follow-up with pulmonology as she needs a biopsy. Patient is well-appearing here not requiring any oxygen has no signs of pneumonia. Lab Data: Labs: Lab Results 01/01/21 01/01/21 Range/Units 16:51 16:51 WBC 6.9 (4.0-10.0) 10^3/ uL RBC 4.77 (4.1-5.3) 10^6/u L Hgb 14.1 (11.5-15.3) g/dL Hct 44.9 (37.0-47.0) % MCV 94.1 (81-99) fL MCH 29.6 (28.0-34.0) pg MCHC 31.4 (30.0-36.0) g/dL RDW 13.1 (12.1-15.1) % Plt Count 282 (130-400) 10^3/c mm MPV 10.6 H (7.4-10.4) fL Neut % (Auto) 60.8 % Lymph % (Auto) 30.5 % Throckmorton % (Auto) 6.7 % Eos % (Auto) 0.4 % Baso % (Auto) 1.3 % Neut # (Auto) 4.16 (1.8-7.7) 10^3/u L Lymph # (Auto) 2.1 (0.8-4.8) 10^3/u L Throckmorton # (Auto) 0.5 (0.2-0.9) 10^3/u L Eos # (Auto) 0.0 (0.0-0.8) 10^3/u L Baso # (Auto) 0.1 (0.0-0.1) 10^3/u L Nucleated RBC % (a uto) 0 % Nucleated RBCs # 0.0 /100WBC Sodium 140 (136-145) mmol/L Potassium 3.9 (3.5-5.1) mmol/L Chloride 102 (98-107) mmol/L Carbon Dioxide 29 (22-29) mmol/L Anion Gap 12.9 (5-19) BUN 5 L (8-23) mg/dL Creatinine 0.6 (0.5-0.9) mg/dL GFR Calculation 101.6 (90-130) mL/min Glucose 84 (65-115) mg/dL Calculated Osmolal ity 286 (285-295) mOsm/k g Calcium 9.2 (8.5-10.5) mg/dL Total Bilirubin 0.5 (0.15-1.2) mg/dL AST 13 (0-32) U/L ALT 9 (0-33) U/L Alkaline Phosphata se 104 (35-105) IU/L Total Protein 6.6 (6.6-8.7) g/dL Albumin 4.5 (3.5-5.2) g/dL Globulin 2.1 (1.3-4.6) g/dL Imaging Data^: CT Chest: Attestation: I personally reviewed and interpreted this imaging study as follows: Radiologist's impression: [address] [address] [address] Scan Report Signed Patient: Kristal Davis Unit #: [id number] : 1960 Age/Sex: 60 / F ADM Date: 01/01/21 Loc: ER Room/Bed: Attending Dr: Ordering Provider/Ordering MD: Aida Dela Cruz MD Date of Service: 01/02/21 Procedure(s): CT angio chest PE prot [id number] Accession Number(s): [id number] Report Number: [id number] PROCEDURE INFORMATION: Exam: CTA Chest With Contrast Exam date and time: 01/02/2021 12:11 AM Age: 60 years old Clinical indication: Cough and shortness of breath; Additional info: SOB TECHNIQUE: Imaging protocol: Computed tomographic angiography of the chest with contrast. 3D rendering (Not supervised by radiologist): MIP and/or 3D reconstructed images were created by the technologist. Radiation optimization: All CT scans at this facility use at least one of these dose optimization techniques: automated exposure control; mA and/or kV adjustment per patient size (includes targeted exams where dose is matched to clinical indication); or iterative reconstruction. Contrast material: OMNI 350; Contrast volume: 70 ml; Contrast route: INTRAVENOUS (IV); COMPARISON: CR XR chest 1V portable [id number] 01/01/2021 2:59 PM RADIATION DOSE METRICS: Total DLP (mGy-cm): 556.26 FINDINGS: Pulmonary arteries: Normal. No pulmonary emboli. Aorta: Unremarkable. No aortic aneurysm. No aortic dissection. Lungs: Subtle bilateral largely upper lobe airspace opacities may reflect an infectious process. Metastatic disease is not excluded given a 15 mm more solid nodular area in the right upper lobe. Pleural spaces: Unremarkable. No pneumothorax. No pleural effusion. Heart: Unremarkable. No cardiomegaly. No pericardial effusion. Lymph nodes: Multiple enlarged left hilar to mediastinal lymph nodes measuring up to 3.8 cm somewhat encasing the hilar structures likely reflecting an underlying malignant process. Bones/joints: Unremarkable. No acute fracture. Soft tissues: Gallbladder appears surgically absent. CT/CT angio chest PE protcl [id number] IMPRESSION: 1. Multiple enlarged left hilar to mediastinal lymph nodes measuring up to 3.8 cm somewhat encasing the hilar structures likely reflecting an underlying malignant process. 2. Subtle bilateral largely upper lobe airspace opacities may reflect an infectious process. Metastatic disease is not excluded given a 15 mm more solid nodular area in the right upper lobe. Highly suspicious nodule(s). Consider non-emergent PET/CT, or tissue sampling.(Reference: Dariel). 3. Gallbladder appears surgically absent. REFERENCES: Dariel Anthony, et al. Guidelines for Management of Incidental Pulmonary Nodules Detected on CT Images: From the Fleischner Society 2017. Radiology. 2017;284(1):228-243. Radiation Dose CTDIVOL = (mGy): DLP = 556.26 (mGy-cm) Dictated By: Terry Cottrell MD Signed By: Terry Cottrell MD Signed Date/Time: 01/02/2143 DD/ Discharge Plan Discharge Patient Disposition: Home Clinical Impression: Lung mass Condition: Stable Prescriptions: No Action acetaminophen 325 mg capsule 325 mg PO QID PRN (Reason: Pain) RF: 0 hydrocodone-acetaminophen 5-325 mg tablet 1 tab PO Q6H PRN (Reason: pain) 7 Days Qty: 28 RF: 0 doxycycline hyclate 100 mg tablet 100 mg PO BID Qty: 30 RF: 0 multivitamin Tablet 1 tab PO DAILY RF: 0 fluoxetine [Prozac] 40 mg capsule 40 mg PO QAM Qty: 30 RF: 3 alprazolam [Xanax XR] 3 mg tablet extended release 24 hr 3 mg PO QAM Qty: 30 RF: 5 omeprazole 20 mg capsule,delayed release(DR/EC) See Rx Instructions .ROUTE .COMPLEX Qty: 180 RF: 1 Discharge Orders: Discharge ED (Routine); Ordered 01/02/21 Ordered By: Aida Dela Cruz Referrals: Kamran Jiang MD [Primary Care Provider] - Christelle Raines MD [Physician] - 1-3 days Discharge Diet: Advance as tolerated Discharge Activity: Resume usual activity Patient Instructions: Acute Hemoptysis (ED) Coding Level of Care Code ED Loss Prevention Operations Manager for Chg Fwd Exam Comprehensive
[2021-01-02] MEDS: iohexol 350 mg/mL 100 mL Btl IV (00:24)
[2021-01-02 02:25] LABS: SARS Covid-2 Antigen Negative (Negative)
[2021-01-02 02:40] VITALS: RESP 17; TEMP 37; O2SAT 95
--- NOTE | 2021-01-03 11:53 | DCPLANNER ---
donor recruitment manager had message to schedule a follow up appointment for patient with Pulmonology. donor recruitment manager called [facility], spoke with Soraya, gave clinic patients information. A follow up appointment was scheduled for Friday, January 15, 2021 at 2:[address] Morris. donor recruitment manager called patient and gave patient the appointment information.
--- NOTE | 2021-01-17 14:51 | DCPLANNER ---
Patient had a follow up appointment scheduled for 01.15.[address] [facility] [address] Morris - patient did attend appointment.
== END 2021-01-02 02:42 | disposition home or self-care (01) ==
PROVIDERS: Physician Assistant; Emergency Provider Emergency Medicine; PCP Family Medicine
DX: R91.8 Other nonspecific abnormal finding of lung field (principal); Z87.891 Personal history of nicotine dependence
CPT/HCPCS: 71045; 71275; 80053; 85025; 87426; 99283; Q9967

== ENCOUNTER → 2021-01-18 08:49 | Outpatient (BNVA) | payer MEDICARE, MEDICAID, SELFPAY | PROVIDERS: PCP Family Medicine; Visit Provider Internal Medicine Pulmonary Disease | DX: J44.9 Chronic obstructive pulmonary disease, unspecified (principal); Z20.822 Contact with and (suspected) exposure to COVID-19 | CPT/HCPCS: 87635 ==

== ENCOUNTER 2021-01-23 06:07 | Day surgery (SDC) | payer MEDICARE, MEDICAID, SELFPAY ==
[2021-01-19 14:02] VITALS: BMI 31.0
[2021-01-23] VITALS (7 sets, daily range): BP systolic 125–168; BP diastolic 50–94; PULSE 66–92; RESP 16–18; TEMP 36.4–36.8; O2SAT 93–96
--- NOTE | 2021-01-23 06:46 | W.PM.OPSFHP ---
Same Day Surgery H&P Indication for Procedure/HPI DATE OF PROCEDURE: January 23, 2021 CHIEF COMPLAINT/INDICATIONFOR SURGICAL PROCEDURE: Left hilar lymphadenopathy PREOP DIAGNOSIS: Lung cancer PLANNED PROCEDRUE: Bronchoscopy with inspection of the airway, possible endobronchial biopsy, endobronchial ultrasound-guided transbronchial needle aspiration of lymph nodes and control of bleeding Operation Date: 01/23/21 07:00 Proposed Procedures p Ebus [id number] R91.1(Not Applicable) - Christelle Raines MD This is a 60-year-old lady who was referred to me by my colleague for evaluation of left hilar lymphadenopathy. The patient initially presented to the emergency department with cough and hemoptysis in the beginning of December and underwent a CT angiogram of the chest on January 02. CT angiogram revealed a right upper lobe lung nodule and a 3.8 cm left hilar lymphadenopathy which seems to be encasing the hilar structures. The patient has more than [id number] history of smoking. She carries a diagnosis of COPD, anxiety disorder. Medications/Allergies* Home Medications Medication Instructions Recorded Confirmed Type multivitamin 1 tab PO DAILY 09/24/19 01/23/21 History acetaminophen 325 mg capsule 325 mg PO QID PRN 06/13/20 01/23/21 History ascorbic acid (vitamin C) 500 mg 500 mg PO DAILY cap 01/15/21 01/23/21 History capsule aspirin 81 mg chewable tablet 81 mg PO DAILY 01/15/21 01/23/21 History cyanocobalamin (vitamin B-12) 250 250 mcg PO DAILY 01/15/21 01/23/21 History mcg lozenges dicyclomine 20 mg tablet 20 mg PO QID PRN tab 01/15/21 01/23/21 History zinc 50 mg tablet 50 mg PO DAILY 01/15/21 01/23/21 History Vitamin B-1 150 mg PO DAILY 01/19/21 01/23/21 History tiotropium bromide [Spiriva 2.5 puff INHALATION PRN 01/19/21 01/23/21 History Respimat] omeprazole 20 mg PO BID 01/23/21 01/23/21 History Allergies/Adverse Reactions Allergy/AdvReac Type Severity Reaction Status Date / Time No Known Allergies Allergy Verified 01/15/21 15:01 Pertinent History/Comorbid Conditions* Medical History (Updated 01/18/21 @ 12:02 by Gordo De Leon MD) Eroded bladder suspension mesh Major depressive disorder, recurrent, in full remission Panic disorder [episodic paroxysmal anxiety] Stenosis of cervical spine with myelopathy Surgical History (Updated 08/14/20 @ 17:51 by Elio Ricketts MD) History of cholecystectomy History of total hysterectomy Status post colonoscopy (07/10/20) normal Status post excision of lipoma (07/10/20) Right forearm, back x2, right forehead Family History (Updated 01/05/20 @ 15:01 by Khushbu Lal LPN) Cancer Brother Father Social History Smoking and tobacco status: current every day smoker (vaping currently ) cigarettes Packs smoked per day: 2 Years cigarettes smoked: 45 and e-cigarettes Second hand smoke exposure: Yes Smoking risk assessment/counseling performed?: Yes Alcohol intake: never Household members: family Marital status: Current occupational status: disabled History of recent travel: No Current gender identity: Female Pertinent Exam Findings alert, oriented x 3, clear to auscultation bilaterally and regular rate & rhythm Recommendations Surgery/Procedure today Coding Level of Care Code Acute Garment Alteration Examiner for Tameka Quinones
[2021-01-23] MEDS: sodium chloride 0.9% 1,000 ML 30 ML IV (06:56)
--- NOTE | 2021-01-23 06:56 | ANES.PREANE2 ---
Pre-Anesthetic Assessment Pre-Anesthetic Assessment: Height/Weight: Height 1.75 m Weight 95.254 kg Temp Pulse Resp BP Pulse Ox 98 F 66 18 130/82 94 01/23/21 06:34 01/23/21 06:34 01/23/21 06:34 01/23/21 06:34 01/23/21 06:34 Preop Diagnosis: Lung cancer Proposed Procedure: Operation Date: 01/23/21 07:00 Proposed Procedures p Ebus [id number] R91.1(Not Applicable) - Christelle Raines MD Was Beta Chata taken within 24 hours: N/A Last intake: Intake Last Liquid Date 01/22/21 Last Liquid Time 19:30 Last Solid Date 01/22/21 Last Solid Time 19:30 Social: Social History: Tobacco Exam: Pre-Anes Outpt Exam: alert, oriented x 3, clear to auscultation bilaterally and regular rate & rhythm Airway: Submandibular: WNL Cervical ROM: WNL MP: 2 Dentition: Full History/ROS: No significant history except as noted and No significant complaints Pulmonary: Pulmonary: COPD CV/HEM: CV/HEM: None reported : : None reported Hepatic: Hepatic: None reported GI: GI: None reported Metabolic: Metabolic: None reported Musc/skel: Musc/skel: Lower Back Pain and OA/DJD Neuropsych: Neuropsych: Anxiety and Depression Anesthetic Plan: ASA status: 3 Anesthesia: Anesthesia Evaluation and MAC Risk of > 500 ml blood loss (7ml/kg in children): No Meds/Allergies Current Medications: Current Medications Generic Name Dose Route Start Last Admin Trade Name Freq PRN Reason Stop Dose Admin Sodium Chloride 1,000 mls @ 30 ml s/hr 01/23/21 06:15 01/23/21 06:56 Sodium Chloride 0.9% IV 01/24/21 06:14 30 mls/hr .Q24H ROBERTO Administration PFSH Anesthesia PFSH: Medical History Eroded bladder suspension mesh Major depressive disorder, recurrent, in full remission Panic disorder [episodic paroxysmal anxiety] Stenosis of cervical spine with myelopathy Surgical History History of cholecystectomy History of total hysterectomy Status post colonoscopy (07/10/20) normal Status post excision of lipoma (07/10/20) Right forearm, back x2, right forehead Family History Brother Cancer Father Cancer Social History Smoking and tobacco status: current every day smoker (vaping currently ) cigarettes Packs smoked per day: 2 Years cigarettes smoked: 45 and e-cigarettes Second hand smoke exposure: Yes Smoking risk assessment/counseling performed?: Yes Alcohol intake: never Household members: family Marital status: Current occupational status: disabled History of recent travel: No Current gender identity: Female Data Anesthesia Cardiac Studies: No Data to Display
[2021-01-23] MEDS: lidocaine 1% INJ 20 mL XX (07:17)
[2021-01-23] MEDS: sodium chloride 0.9% (100 ml) 100 ML 30 ML (08:02)
--- NOTE | 2021-01-23 09:06 | PM.OP ---
Operative Report Date of procedure: January 23, 2021 Pre-op Diagnosis: Lung cancer Post-op diagnosis: same Brief History: This is a 60-year-old lady with recently identified left hilar lymphadenopathy who is been suffering from hemoptysis comes in for bronchoscopic evaluation. Procedure: Name of the procedure: Bronchoscopy with inspection of the airway, bronchoalveolar lavage, endobronchial biopsies, endobronchial ultrasound-guided transbronchial needle aspiration of lymph nodes and control of bleeding. Indication: Suspected lung cancer Anesthesia: General anesthesia. Local anesthesia: The paulina in the right and left mainstem bronchi were anesthetized with 1% lidocaine, 3 mL. Description of the procedure: The procedure was explained to the patient and the consent was obtained. The patient was brought to the OR. The patient underwent endotracheal intubation for general anesthesia. Following induction of general anesthesia, the bronchoscope was advanced through the ET tube. The lower trachea appeared to be normal. the paulina was sharp. The paulina, the right and left mainstem bronchi are anesthetized with 1% lidocaine. In a systematic manner bilateral bronchial tree was then examined. The bronchoscope was advanced into the left mainstem bronchus. The apicoposterior segment of the left upper lobe revealed complete occlusion from endobronchial growth. Bronchoscope could be advanced into the anterior segment of the left upper lobe. The lingula and left lower lobe bronchi were examined up to the third subsegmental level and no abnormalities were identified. The bronchoscope was then introduced into the right mainstem bronchus. The right upper lobe, right middle lobe and right lower lobe bronchi were examined up to the third subsegmental level and no abnormalities were identified. Endobronchial biopsies were performed from the left upper lobe. 6 specimens were obtained. Bronchoalveolar lavage was performed from the left upper lobe. 60 mL of saline was instilled, fluid return was 10 mL. The fluid was bloody. The endobronchial ultrasound was introduced through the ET tube. Mediastinal and hilar lymphadenopathy was identified with the ultrasound. TB NA was performed from station 7 and 10 L. Samples: 1. Bronchoalveolar lavage specimen was sent for cytology. 2. The endobronchial biopsies are sent for histopathology. 3. The transbronchial needle aspiration of the aforementioned lymph node groups were sent for histopathology. Complications: There was no immediate complications.
== END 2021-01-23 09:37 | disposition home or self-care (01) ==
PROVIDERS: PCP Family Medicine; Visit Provider Internal Medicine Critical Care Medicine
PROC: BB4BZZZ Ultrasonography of Pleura (ICD-10-PCS; CPT 31624; principal; 2021-01-23 07:00)
PROC: 0BJ08ZZ Inspection of Tracheobronchial Tree, Via Natural or Artificial Opening Endoscopic (ICD-10-PCS; CPT 31622; 2021-01-23 07:00)
DX: C34.12 Malignant neoplasm of upper lobe, left bronchus or lung (principal); J44.9 Chronic obstructive pulmonary disease, unspecified; F17.210 Nicotine dependence, cigarettes, uncomplicated; F17.290 Nicotine dependence, other tobacco product, uncomplicated
CPT/HCPCS: 31624; 31625; 31652; 80500; 88112; 88305; J1100; J2370; J2405; J2704; J2710; J3010; J3490; J7030

== ENCOUNTER → 2021-02-14 09:02 | Outpatient (BNVA) | payer MEDICARE, MEDICAID, SELFPAY | PROVIDERS: PCP Family Medicine; Visit Provider Thoracic Surgery (Cardiothoracic Vascular Surgery) | DX: R59.0 Localized enlarged lymph nodes (principal); Z20.822 Contact with and (suspected) exposure to COVID-19 | CPT/HCPCS: 87635 ==

== ENCOUNTER 2021-02-19 17:25 | Inpatient (IN) | payer MEDICARE, MEDICAID, SELFPAY ==
[2021-02-14 09:59] VITALS: BMI 30.7
[2021-02-14 11:01] LABS: Basophils # 0.1 10^3/uL (0.0-0.1); Basophils % 1.2 %; Eosinophils % 0.7 %; Hematocrit 43.5 % (37.0-47.0); Hemoglobin 13.7 g/dL (11.5-15.3); Lymphocytes # 1.5 10^3/uL (0.8-4.8); Lymphocytes % 26.2 %; Mean Corpuscular HGB Conc 31.5 g/dL (30.0-36.0); Mean Corpuscular Hemoglobin 29.5 pg (28.0-34.0); Mean Corpuscular Volume 93.8 fl (81-99); Mean Platelet Volume 10.6 fL (7.4-10.4); Monocytes # 0.4 10^3/uL (0.2-0.9); Monocytes % 7.3 %; Neutrophils # 3.63 10^3/uL (1.8-7.7); Neutrophils % 64.4 %; Nucleated Red Blood Cells % 0 %; Platelet Count 269 10^3/cmm (130-400); Red Blood Count 4.64 10^6/uL (4.1-5.3); Red Cell Distribution Width 12.7 % (12.1-15.1); White Blood Count 5.6 10^3/uL (4.0-10.0)
[2021-02-14 11:31] LABS: Add Urine Microscopic? YES; Bilirubin Urine Neg (Negative); Blood Urine 3+ (Negative); Glucose Urine UA Norm (Normal); Ketones Urine Negative (Negative); Leukocyte Esterase Urine Negative (Negative); Nitrate Urine Negative (Negative); Protein Urine Neg (Negative); Urine Appearance Clear (CLEAR); Urine Color Yellow (Yellow); Urobilinogen Urine Norm (Negative); pH Urine 7 (5-7)
[2021-02-14 11:32] LABS: Add Urine Culture? No; Bacteria Urine TRACE /hpf; Mucus Urine 2+ /hpf; Squamous Epithelial Cell Urine 0-4 /hpf (0-5); WBC Urine 0-4 /hpf (0-5)
[2021-02-14 11:42] LABS: Alanine Aminotransferase 8 U/L (0-33); Albumin Level 4.3 g/dL (3.5-5.2); Alkaline Phosphatase 101 IU/L (35-105); Anion Gap 11.8 (5-19); Aspartate Amino Transferase 10 U/L (0-32); Blood Urea Nitrogen 6 mg/dL (8-23); Calcium 9.5 mg/dL (8.5-10.5); Carbon Dioxide 31 mmol/L (22-29); Chloride 102 mmol/L (98-107); Globulin 2.2 g/dL (1.3-4.6); Glomerular Filtration Rate 101.6 mL/min (90-130); Glucose 89 mg/dL (65-115); Osmolality Calculated 289 mOsm/kg (285-295); Potassium 3.8 mmol/L (3.5-5.1); Sodium 141 mmol/L (136-145); Total Bilirubin 0.5 mg/dL (0.15-1.2); Total Protein 6.5 g/dL (6.6-8.7)
--- NOTE | 2021-02-14 16:05 | P.ANESASSM_ITS ---
Pre-Anesthetic Assessment Pre-Anesthetic Assessment: Height/Weight: Height 1.75 m Weight 94.347 kg Preop Diagnosis: Lung cancer Proposed Procedure: Operation Date: 02/19/21 10:45 Proposed Procedures p [place] Mediastinoscopy(Not Applicable) - Clyde Enciso MD Was Beta Chata taken within 24 hours: N/A Was Clonidine taken within 24 hours: N/A Social: Social History: Tobacco (Vapes) and No alcohol Exam: Pre-Anes Outpt Exam: alert, oriented x 3 and regular rate & rhythm Airway: Submandibular: WNL Cervical ROM: WNL MP: 2 Dentition: Full Pulmonary: Pulmonary: COPD GI: GI: GERD Musc/skel: Musc/skel: OA/DJD Neuropsych: Neuropsych: Anxiety and Depression Anesthetic Plan: ASA status: 3 Anesthesia: General Risk of > 500 ml blood loss (7ml/kg in children): No PFSH Anesthesia PFSH: Medical History Eroded bladder suspension mesh Major depressive disorder, recurrent, in full remission Panic disorder [episodic paroxysmal anxiety] Stenosis of cervical spine with myelopathy Surgical History History of cholecystectomy History of total hysterectomy Status post colonoscopy (07/10/20) normal Status post excision of lipoma (07/10/20) Right forearm, back x2, right forehead Family History Brother Cancer Father Cancer Social History Smoking and tobacco status: current every day smoker e-cigarettes Quit status (tobacco): has quit using tobacco Year quit tobacco: 2015 Former quit date comment: 2ppd x 45years Second hand smoke exposure: Yes Smoking risk assessment/counseling performed?: Yes Alcohol intake: never Household members: family Marital status: Current occupational status: disabled History of recent travel: No Current gender identity: Female Data Anesthesia CBC & Chem 7: 02/14/21 10:45 02/14/21 10:45 Other Labs: Laboratory Results - last 48 hr 02/14/21 02/14/21 02/14/21 10:40 10:45 10:45 WBC 5.6 RBC 4.64 Hgb 13.7 Hct 43.5 MCV 93.8 MCH 29.5 MCHC 31.5 RDW 12.7 Plt Count 269 MPV 10.6 H Neut % (Auto) 64.4 Lymph % (Auto) 26.2 [place] % (Auto) 7.3 Eos % (Auto) 0.7 Baso % (Auto) 1.2 Neut # (Auto) 3.63 Lymph # (Auto) 1.5 [place] # (Auto) 0.4 Eos # (Auto) 0.0 Baso # (Auto) 0.1 Nucleated RBC % (auto) 0 Nucleated RBCs # 0.0 Sodium Potassium Chloride Carbon Dioxide Anion Gap BUN Creatinine GFR Calculation Glucose Calculated Osmolality Calcium Total Bilirubin AST ALT Alkaline Phosphatase Total Protein Albumin Globulin Urine Color Yellow Urine Appearance Clear Urine pH 7 Ur Specific [place] 1.010 Urine Protein Neg Urine Glucose (UA) Norm Urine Ketones Negative Urine Blood 3+ H Urine Nitrate Negative Urine Bilirubin Neg Urine Urobilinogen Norm Ur Leukocyte Esterase Negative Urine RBC 5-10 H Urine WBC 0-4 H Ur Squamous Epith Cells 0-4 H Amorphous Sediment Not Reportable Urine Bacteria Trace Urine Mucus 2+ Blood Type A Negative Rho(D) Type Negative Antibody Screen Negative 02/14/21 10:45 WBC RBC Hgb Hct MCV MCH MCHC RDW Plt Count MPV Neut % (Auto) Lymph % (Auto) [place] % (Auto) Eos % (Auto) Baso % (Auto) Neut # (Auto) Lymph # (Auto) [place] # (Auto) Eos # (Auto) Baso # (Auto) Nucleated RBC % (auto) Nucleated RBCs # Sodium 141 Potassium 3.8 Chloride 102 Carbon Dioxide 31 H Anion Gap 11.8 BUN 6 L Creatinine 0.6 GFR Calculation 101.6 Glucose 89 Calculated Osmolality 289 Calcium 9.5 Total Bilirubin 0.5 AST 10 ALT 8 Alkaline Phosphatase 101 Total Protein 6.5 L Albumin 4.3 Globulin 2.2 Urine Color Urine Appearance Urine pH Ur Specific [place] Urine Protein Urine Glucose (UA) Urine Ketones Urine Blood Urine Nitrate Urine Bilirubin Urine Urobilinogen Ur Leukocyte Esterase Urine RBC Urine WBC Ur Squamous Epith Cells Amorphous Sediment Urine Bacteria Urine Mucus Blood Type Rho(D) Type Antibody Screen Cardiac Studies: No Data to Display
[2021-02-19] VITALS (21 sets, daily range): BP systolic 139–167; BP diastolic 81–108; PULSE 72–108; RESP 12–26; TEMP 36.4–36.7; O2SAT 92–100
[2021-02-19] MEDS: sodium chloride 0.9% 1,000 ML 30 ML IV (09:40)
--- NOTE | 2021-02-19 10:06 | P.ANESUD_ITS ---
Pre-Anesthetic Update Pre-Anesthetic Assessment: Date of Surgery/Procedure: 02/19/21 Preop [place] gnosis: Mediastinal mass Proposed Procedure: Operation Date: 02/19/21 10:45 Proposed Procedures p [place] Mediastinoscopy(Not Applicable) - Clyde Enciso MD Any changes to Pre-Anesthetic Assessment?: No Last Intake: Intake Last Liquid Date 02/18/21 Last Liquid Time 23:30 Last Solid Date 02/18/21 Last Solid Time 19:00 Labs Last 48hrs: Laboratory Results - last 48 hr 02/14/21 10:45 Blood Type A Negative Rho(D) Type Negative Antibody Screen Negative Crossmatch See Detail Vitals: Temperature 97.5 F L 02/19/21 09:05 Temperature Source Temporal Artery S can 02/19/21 09:05 Pulse Rate 72 02/19/21 09:05 Respiratory Rate 16 02/19/21 09:05 Blood Pressure 145/85 02/19/21 09:05 Blood Pressure Priya n 105 02/19/21 09:05 Pulse Oximetry 96 02/19/21 09:05 Oxygen Delivery Me thod 02/19/21 09:12 Exam: Pre-Anes Outpt Exam: alert, oriented x 3, clear to auscultation bilaterally and regular rate & rhythm Cardiac Studies: No Data to Display
--- NOTE | 2021-02-19 11:34 | P.HPUD_ITS ---
Surgery/Procedure H&P Update DATE OF PROCEDURE: February 19, 2021 DATE H&P PERFORMED: 02/06/21 H&P UPDATE INFORMATION: I have reviewed H&P completed within last 30 days, I have examined patient prior to procedure and No changes to prior documentation PREOP DIAGNOSIS: Mediastinal mass PRIMARY INDICATION FOR PROCEDURE: Tissue sampling by [place] procedure of mass and AP window after attempted biopsy by EBUS. Details and risk of procedure again carefully discussed with Ms. Peña and her mother this morning. All questions answered. PLANNED PROCEDURE: Operation Date: 02/19/21 10:45 Proposed Procedures p [place] Mediastinoscopy(Not Applicable) - Clyde Enciso MD
[2021-02-19] MEDS: vancomycin 1,000 MG SDV 1000 MG IRRIGATION (13:00)
[2021-02-19] MEDS: fentaNYL 50 mcg/mL INJ 2mL IVP (14:24)
[2021-02-19] MEDS: ondansetron 2 mg/ML SDV 2 mL 4 MG IVP (14:42)
--- NOTE | 2021-02-19 14:59 | PM.OP ---
Operative Report Date of procedure: February 19, 2021 Pre-op Diagnosis: Mediastinal mass Post-op diagnosis: same Procedure Done: Left-sided [place] procedure with biopsy Specimens removed/disposition: Biopsy AP window mass. Frozen section analysis: Squamous cell carcinoma. Anesthesia: General Condition: stable Disposition: floor Brief History: Ms. Esquivel is a 60-year-old female referred to our service to consider surgical biopsy mediastinal adenopathy which include AP window adenopathy and adenopathy in the perihilar region on the left side. This area showed increased activity on PET scan which included the AP window, left hilar region, as well as activity in the right upper lobe pulmonary nodule and lytic osseous metastatic disease at L5. She had previously undergone bronchoscopy and EBUS but no diagnosis could be determined. She was therefore referred to consider surgical option. We recommended a left sided mediastinotomy for direct access to the AP window and biopsy. Details the risk of the procedure were carefully and frankly discussed. Proper consents were reviewed and signed. Procedure: Ms. Esquivel was placed in supine position and underwent general endotracheal anesthesia. A right radial arterial line was placed. The entire chest was sterilely prepped and draped. A left parasternal incision was made extending over the second and third ribs at the intercostal junction with the sternum. Dissection was continued down through the to the perichondrium of the ribs. The third rib was dissected free anteriorly and posteriorly at this junction. The rib was subsequently divided and a small section anteriorly was removed. The left internal mammary artery and vein were dissected free and clipped and divided and removed from the field. Sharp and blunt dissection was carried down through periaortic adipose tissue until the mass was encountered the AP window. It was aspirated several times and then multiple incisional biopsies were taken. These were sent to pathology for both frozen and permanent section. Frozen section analysis returned consistent with squamous cell carcinoma. Hemostasis was then confirmed using cautery and Surgicel. Once completed, retractors were removed. Sponge and needle count was correct. Wound was closed with 2-0 Vicryl suture in 2 layers and the skin was reapproximated in a subcuticular fashion utilizing 4-0 Monocryl suture. Sterile dressings were applied. She has equal breath sounds bilaterally and was extubated and taken to the postoperative care unit. I counseled with her mother at the completion of the procedure.
--- NOTE | 2021-02-19 15:12 | SUR.PHASEI ---
1430 PT ART LINE TO RT WRIST DCD INTACT, PRESSURE HELD X 10 JMINUTES SITE D/I PRESSURE DRESSING TO SITE, HAND PINK WARM CAP REFILL LESS THAN 3 SECONDS VSS PT REMAINS ON BED CHAVIRA PER REQUEST, WANTS TO SEE MOM PT TAKING OCC ICE CHIPS 1442 PT C/O OF NAUSEA NO EMESIS SEE MED GIVEN, VSS 1449 PT TO OPS ROOM 2 FOR HOLDING UNTIL ROOM AVAILABLE, WARM BLANKETS X 4 TO PT BILAT ARMS PT STILL ON BEDPAN, REFUSED TO LET IT BE REMOVED. PT REQUESTS A COKE TO SIP ON PT REMAINS ON 3LNC SATS 93-94% MOM AT BEDSIDE . 0
[2021-02-19] MEDS: HYDROcodone-acetaminophen 5-325 mg Tablet 2 TAB PO ×2 (15:58→23:58)
--- NOTE | 2021-02-19 16:32 | ANE.PACU2 ---
Inpatient post-anesthesia follow up: Airway intact: Yes Vital signs: Temperature 97.8 F Pulse Rate 84 Respiratory Rate 18 Blood Pressure 154/87 Pulse Oximetry 94 Oxygen Delivery Me thod Room Air Oxygen Flow Rate 3 Fraction of Inspir ed Oxygen Hydration adequate: Yes Nausea and vomiting: No Pain level: 2 Mental status: Baseline
[2021-02-19] MEDS: ketorolac 30 mg/mL INJ IVP (17:00)
--- NOTE | 2021-02-19 19:19 | PC.NURSE ---
PT CAME TO [facility] FLOOR, PT WAS ON BEDPAN AT PTS REQUEST. PTS BUTTOCKS AND SACRAL AREA WAS FOUND TO BE EXTREMELY RED. BEDPAN WAS REMOVED, PT WAS EDUCATED ON WHY WE WOULD NOT LEAVE HER ON THE BEDPAN, EVEN AT HER REQUEST. PT IS UP AD ELPIDIO AND ABLE TO USE THE TOILET.
[2021-02-19] MEDS: lactated ringers 1,000 ML 75 ML IV (20:01)
[2021-02-19] MEDS: fluoxetine 20 mg Capsule 40 MG PO (20:30)
[2021-02-20 00:19] VITALS: BP 130/80; PULSE 71; RESP 18; TEMP 37.1; O2SAT 94
[2021-02-20] MEDS: alum-mag-hydroxide-sime 30 mL UDC PO (00:27)
[2021-02-20 05:21] VITALS: BP 148/84; PULSE 82; RESP 17; TEMP 36.4; O2SAT 95
--- NOTE | 2021-02-20 06:37 | P.DS_ITS ---
Discharge Providers Date of Admission: 02/19/21 17:25 Date of Discharge: February 20, 2021 Attending Provider at Admission: Clyde Enciso MD Attending Provider at Discharge: Clyde Enicso MD Primary Care Provider: Kamran Jiang MD Diagnoses at Discharge Discharge Diagnosis (1) Squamous cell carcinoma: Status: Acute Reason for Visit Reason for Visit: [facility] [place] Course Hospital Course Ms. Esquivel was electively admitted on February 19 for planned left-sided [place] procedure due to mediastinal and left hilar adenopathy with previous attempts at diagnosis by bronchoscopy and EBUS. PET scan imaging revealed increased activity of the left hilar and AP window adenopathy. She underwent left-sided [place] procedure with frozen section analysis of the material obtained from the AP window being consistent with squamous cell carcinoma. Further testing to follow. She convalesced on the medical/surgical jackson. Vital signs remained stable and she has done well. Postoperative discomfort under good control. Surgical dressings are clean and dry. She will be discharged home today in stable condition for schedule follow-up in my clinic in 1 week. Physical Exam Chest: COMMONS NORMALS: normal inspection of the chest and normal palpation of entire chest wall OTHER: Surgical site dressings are clean and dry. Resp: COMMON NORMALS: normal respiratory effort, No use of accessory muscles, clear to auscultation bilaterally and percussion normal EFFORT & INSPECTION: Yes able to speak in complete sentences and Yes symmetric chest movement AUSCULTATION: clear to auscultation bilaterally PERCUSSION: percussion normal Cardio: COMMON NORMALS: regular rate, regular rhythm, S1 normal heart sound present, No murmurs present (Cardio) and No rub (Cardio) RATE: regular rate RHYTHM: regular rhythm HEART SOUNDS: S1 normal heart sound present Extremity: COMMON NORMALS: no clubbing, cyanosis or edema Discharge Data Data Completed and Pending: Pending at discharge Category Date Time Status Leukocyte Reduced RBC Routine Lab 02/14/21 10:45 Results Type and Screen R outine Lab 02/14/21 10:45 Results Pathology: Surgic al [PTH] Routine Pth 02/19/21 14:12 Ordered Labs from last 24 hours 02/14/21 10:45 Blood Type A Negative Rho(D) Type Negative Antibody Screen Negative Crossmatch See Detail Vitals: Last Vital Signs Temp 97.6 F 02/20/21 05:21 Pulse 82 02/20/21 05:21 Resp 17 02/20/21 05:21 BP 148/84 02/20/21 05:21 Pulse Ox 95 02/20/21 05:21 Discharge Plan Discharge Condition: Stable Prescriptions: New hydrocodone-acetaminophen 5-325 mg Tablet 1 tab PO Q6H PRN (Reason: Moderate To Severe Pain) Qty: 16 RF: 0 Continued acetaminophen 325 mg capsule 325 mg PO QID PRN (Reason: Pain) RF: 0 dicyclomine 20 mg tablet 20 mg PO QID PRN (Reason: Pain) RF: 0 multivitamin Tablet 1 tab PO DAILY RF: 0 zinc 50 mg tablet 50 mg PO DAILY RF: 0 ascorbic acid (vitamin C) 500 mg capsule 500 mg PO DAILY RF: 0 aspirin 81 mg tablet,chewable 81 mg PO DAILY RF: 0 fluoxetine [Prozac] 40 mg capsule 40 mg PO QAM Qty: 30 RF: 3 alprazolam [Xanax XR] 3 mg tablet extended release 24 hr 3 mg PO QAM Qty: 30 RF: 5 Spiriva Respimat 2.5 mcg/actuation mist 2.5 puff INHALATION PRN RF: 0 Vitamin B-1 150 mg PO DAILY RF: 0 omeprazole 20 mg capsule,delayed release(DR/EC) 20 mg PO BID RF: 0 calcium citrate malate-vit D3 500-200 mg-unit Tablet PO RF: 0 Discharge Orders: Discharge Order (Routine); Ordered 02/20/21 Ordered By: Clyde Enciso Referrals: Clyde Enciso MD [Physician] - 1 week Discharge Diet: Usual diet Discharge Activity: Limit activity as instructed Activity Restrictions/Additional Instructions: No heavy lifting or pulling x1 week May remove surgical bandage tomorrow. May begin daily showers tomorrow. No swimming or tub baths x2 weeks Cover incision when working in dirty or [place] areas for the next 2 weeks Your diagnosis from the frozen section analysis at the time of surgery: Squamous cell carcinoma Further testing will be done on the surgical specimen with other reports to follow within the next 1 to 2 weeks. Please call office for any concerns or questions. Discharge Attestations Time Spent in Discharge Care*: less than 30 min Specific Discharge Activities: educating patient, discussing with correctional counselor/case manager/social workers/dc planners, documenting/other paperwork and evaluating patient/reviewing data Status at Discharge: Cognitive status at discharge: cognitively intact , Behavioral status at discharge: cooperative , Functional status at discharge: independent ambulation Overall status at discharge: patient is back to baseline Quality Metrics Clinical Quality Measures During this hospital stay, did patient experience: None Coding Level of Care Code Acute g TG note Diagnoses Squamous cell carcinoma
[2021-02-20 08:09] VITALS: BP 115/70; PULSE 77; RESP 17; TEMP 37; O2SAT 90
[2021-02-20] MEDS: HYDROcodone-acetaminophen 5-325 mg Tablet 2 TAB PO (08:36)
--- NOTE | 2021-02-20 09:49 | PC.NURSE ---
Discharge instructions and activity restrictions reviewed with patient. All questions answered.
--- NOTE | 2021-02-20 10:38 | PC.CHAP ---
Pastoral Care Encounter/Spiritual Assessment Type of Contact [] Declined telemetry technician visit [] Patient/Family/Request visit [] Outpatient visit [] Follow-up visit [] Physician referral [] Code/Alert [x] Routine visit [] Staff referral [] Actively dying [] Patient sleeping [] Family support [] [] Out of room [] Palliative care [] [] Receiving care in room [] Pre-surgical visit [] Trauma [] Long length of stay [] ICU visit [] Other: Relational/Emotional Strength [x] Patient feels connected with others/family/visitors/staff [] Distress [] Loneliness/isolation [] Abandonment Spirituality of Patient [x] Person of Lise [] Attends Alevism of their Lise [] Believes in Prayer [] Reads Bible or Zoroastrianism materials [] There are Spiritual issues to be addressed General Operator Interventions [] Prayer [x] Active listening [x] Non-anxious presence [x] Spiritual/emotional support [] Crisis/trauma care [] Spiritual counseling [] Bereavement support [] Provided bereavement packet [] Provided Bible/devotional materials [] Provided toy/stuffed animal, coloring book to patient or family member [] Provided Communion [] Anointing/[place] [] Salvation [x] Completed spiritual assessment [] Other: Impact on Illness or Injury [] Angry [] Fearful [] Anxious [] Often cries [] Exhaustion [] Unable to work [] Unable to attend yazidi [] Unable to walk/stand [] Unable to read [] Unable to drive [] Unable to eat/drink [] Unable to sleep [] Unable to be with family [] Patient intubated [] Other: Summary Staff entered room so visit was cut short Time spent with patient 10m
--- NOTE | 2021-02-21 11:04 | PC.SOCIAL ---
discharge follow up call made, spoke with patient. patient reports she is very sore but doing good. patient has follow up appointment with Dr. Lyle tomorrow, she will discuss treatment options at this time. patient picked up hydrocodone from the pharmacy and she is taking as directed with pain relief. Patient has follow up appointment with Dr. Enciso scheduled for 03-02. Patient will remove bandage tomorrow, she knows not to soak, and no heavy lifting or pulling x1 week.
--- NOTE | 2021-02-21 15:37 | PC.RESP ---
sent smoking cessation and pulmonary information
[2021-03-09 09:44] LABS: PD-L1 (Clone 22C3) by IHC BBPL See Report
== END 2021-02-20 10:46 | disposition home or self-care (01) | DRG 167 ==
LOC: MEDSURG 17:26
PROVIDERS: Admitting Provider Thoracic Surgery (Cardiothoracic Vascular Surgery); PCP Family Medicine; Visit Provider Thoracic Surgery (Cardiothoracic Vascular Surgery)
PROC: 0WBC0ZX Excision of Mediastinum, Open Approach, Diagnostic (ICD-10-PCS; principal; 2021-02-19 10:35)
DX: C78.1 Secondary malignant neoplasm of mediastinum (principal); C79.51 Secondary malignant neoplasm of bone; G99.2 Myelopathy in diseases classified elsewhere; F33.42 Major depressive disorder, recurrent, in full remission; F41.0 Panic disorder [episodic paroxysmal anxiety]; M48.02 Spinal stenosis, cervical region; Z72.0 Tobacco use
CPT/HCPCS: 80053; 81001; 85025; 86850; 86900; 86920; 88305; 88331; 88342; J0690; J1100; J1885; J2405; J2704; J2710; J3010; J3370; J3490; J7030

== ENCOUNTER 2021-02-22 14:24 | Outpatient (CLI) | payer MEDICARE, MEDICAID, SELFPAY ==
--- NOTE | 2021-02-23 08:47 | ONC CON_ITS ---
Dr. Lyle New Patient Note Patient: Kristal Davis Unit #: [id number]: 1960 Dicatated By: Satish Lyle M.D.Date of Visit: Feb 22, 2021 Onc MED New Patient/Consult Referring Physician: Dr. AMEENA ENCISO M.D. History of Present Illness: Ms. Kristal Peña, is a 60-year-old female with history of histoplasmosis involving bilateral lung, as per patient she was diagnosed with this condition about 30 years ago since then she has been treated with pills off and on and then being followed by pulmonology because of bilateral pulmonary nodules and some lymph nodes. As per patient last year in January 2020 when she underwent C-spine surgery, at that time she was told she has abnormal chest x-ray which showed bilateral pulmonary nodules and some fullness, as per patient his primary care Dr. Jiang when compared those chest x-ray with the previous, there was no change. As per patient in December 2020, when she was looking for her dog and it was very hot outside and she was shouting and hauling, subsequently developed cough and coughed up some blood and then went to [facility] on January 01, 2021, patient denies any shortness of breath at bedtime denies any fever chills CTA chest done on January 01, 2021 showed multiple enlarged left hilar mediastinal lymph nodes measuring up to 3.8 cm somewhat encasing hilar structures. Subtle bilateral largely upper lobe airspace opacities may reflect an infectious process., Patient was referred to pulmonology, she underwent bronchoscopy on January 23, 2021, left upper lobe endobronchial biopsy showed single fragment of focal squamous dysplasia, no malignancy station 7 lymph node showed no malignancy station 10 L ultrasound-guided endobronchial biopsy shows no malignancy, , Underwent CT PET scan on January 27, 2021 which shows a 1.3 cm medial right upper lobe nodule has SUV of 3.6, a 1.4 cm right upper lobe groundglass opacity does not demonstrate significant activity. Other tiny right-sided nodules in the right lower right upper lobes are FDG negative. A 4.50 x 3.4 cm left hilar mass has SUV of 10.2 indicating malignancy. A 4.1 x 2.1 cm prevascular lymph node has SUV 10.2 as well. Other mediastinal lymph nodes are subcentimeter in size and without suspicious activity. A lytic lesion in the L5 vertebral body has SUV of 7.6, significant unifocal osseous metastatic disease. patient was referred to Dr. Enciso for mediastinoscopy, on February 19, 2021 she underwent left-sided [place] procedure with biopsy and the prelim pathology report confirmed AP window mass/lymph node shows positive for malignancy consistent with squamous cell carcinoma further immunohistochemistry to confirm is pending including PD-L1 status. Patient denies any history of hemoptysis prior to that patient denies any history of smoking but she is a former smoker, patient denies any back pain, denies any dysphagia, denies any headaches or blurred vision or double vision except when she spent too much time on the computer done sometimes she feels blurred. No fever chills, no sore throat no postnasal discharge or drip. Past Medical History: Ms. Davis's medical history consists of cervical stenosis, chronic obstructive pulmonary disease, depression, eroded bladder suspension mesh, and panic disorder. Past Surgical History: Ms. Davis's surgical/procedural history consists of cholecystectomy, excision of lipoma from right forearm, back x2, and right forehead, hysterectomy, and colonoscopy in 2020. Medications: Acetaminophen 1 Capsule (of 325 mg) Oral four times a day PRN, Adult Aspirin EC Low Strength 1 Tablet (of 81 mg) Tablet, enteric coated Oral daily, ALPRAZolam ER 1 Tablet (of 3 mg) Tablet SR 24 HR Oral daily, Ascorbic Acid 1 Capsule (of 500 mg) Oral daily, B-1 1 Tablet (of 100 mg) Oral daily, Calcium Citrate Malate-Vit D 2 Tablet (of 250-100 mg - Units) Oral daily, Daily Multiple Vitamins 1 Tablet Oral daily, Dicyclomine HCl 1 Tablet (of 20 mg) Oral four times a day PRN, FLUoxetine HCl 1 Capsule (of 40 mg) Oral every am, Omeprazole 1 Capsule (of 20 mg) Capsule Delayed Release Oral b.i.d., Spiriva Respimat 2 Puff(s) (of 2.5 mcg/act) Aerosol, solution Inhalation daily PRN, Zinc 1 Tablet (of 50 mg) Oral daily Allergies: No Known Allergies. Social History: Ms. Davis is single. Ms. Davis quit smoking 5 years ago but had smoked 2.0 packs/day for 45 years. She has indicated exposure to the following products: vape. uses vape device daily. Family History: There is no documented family history. Review Of Symptoms: Review of Systems is not available for this patient. Vital Signs: Performed on Feb 22, 2021 15:36: 6, 8, 0.00, 0.00 sq.m, 95 % (LOW), 76 /min, 18 /min, 124/77 mm(hg), 99.9 F (HIGH), and 232.2 lbs (HIGH). Performance Status: 0 - Fully active, able to carry on all predisease activities without restrictions. (ECOG) Physical Examination: ENMT - No mouth sores, no thrush, no jaundice no cervical lymphadenopathy, Respiratory - Lungs are clear to auscultation, Cardiovascular - Regular rate and rhythm of heart, Abdomen - Soft, bowel sounds present, Extremities - No visible edema. Lab/Imaging: Most recent lab results are not available for this patient. 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 Lytic osseous metastatic disease at L5 History of pulmonary histoplasmosis involving bilateral lung with residual bilateral lung nodules and lymphadenopathy as per patient, being followed by pulmonology and PMD, in the past treated with some kind of pill on many occasion. Plan: Discussed with patient regarding her CT PET scan finding and her prelim pathology report which is consistent with non-small cell lung cancer squamous cell type although further confirmatory immunohistochemistry stains are pending, case was discussed with pathology today and awaiting immunohistochemistry report, her PET scan report was somewhat unusual as patient has right upper lobe nodule but no right hilar lymphadenopathy there is intense uptake in the left hilar mass or lymph node and prevascular lymph node in the multiple nodules in the lung which were not FDG positive, and as per patient she has history of pulmonary histoplasmosis with abnormal CT scan and chest x-ray in the past and being followed by pulmonology as well as primary care Dr. Jiang said concern was whether we have malignancy versus persistent/active histoplasmosis., Pathology was requested to consider work-up for histoplasmosis also. Patient return to clinic in 10 days, hopefully by that time we will have immunohistochemistry reports back to confirm whether we are dealing with malignancy or histoplasmosis. As far as lytic lesion in L5 vertebral body is concerned, patient is not symptomatic, if her lung biopsy shows no evidence of malignancy then will consider MRI scan of L5 for further detail evaluation and may consider biopsy. On the other hand if final pathology report confirmed non-small cell lung cancer, will consider MRI scan of the brain to complete staging work-up and then refer her to radiation oncology for definitive combined chemoradiation and SBRT to L5 vertebra. Return to clinic in 10 days with CBC CMP Signed By: Satish Lyle M.D. <<Signature on File>>
== END 2021-02-22 14:25 | disposition home or self-care (01) ==
LOC: ONCMED 14:31
PROVIDERS: PCP Family Medicine; Visit Provider Internal Medicine Hematology & Oncology
DX: C77.1 Secondary and unspecified malignant neoplasm of intrathoracic lymph nodes (principal); C80.1 Malignant (primary) neoplasm, unspecified; R91.8 Other nonspecific abnormal finding of lung field; B39.2 Pulmonary histoplasmosis capsulati, unspecified; Z87.891 Personal history of nicotine dependence; Z79.899 Other long term (current) drug therapy; Z79.82 Long term (current) use of aspirin
CPT/HCPCS: 99205

== ENCOUNTER 2021-03-05 07:49 | Outpatient (CLI) | payer MEDICARE, MEDICAID, SELFPAY ==
--- NOTE | 2021-03-12 10:52 | ONC FU_ITS ---
Dr. Lyle follow up note Patient: Kristal Davis Unit #: [id number]: 1960 Dicatated By: Satish Lyle M.D.Date of Visit:Mar 05, 2021 Onc Med Follow-up/Prog Note History of Present Illness: Ms. Kristal Peña, is a 60-year-old female with history of histoplasmosis involving bilateral lung, as per patient she was diagnosed with this condition about 30 years ago since then she has been treated with pills off and on and then being followed by pulmonology because of bilateral pulmonary nodules and some lymph nodes. As per patient last year in January 2020 when she underwent C-spine surgery, at that time she was told she has abnormal chest x-ray which showed bilateral pulmonary nodules and some fullness, as per patient his primary care Dr. Jiang when compared those chest x-ray with the previous, there was no change. As per patient in December 2020, when she was looking for her dog and it was very hot outside and she was shouting and hauling, subsequently developed cough and coughed up some blood and then went to [facility] [place] [facility] on January 01, 2021, patient denies any shortness of breath at bedtime denies any fever chills CTA chest done on January 01, 2021 showed multiple enlarged left hilar mediastinal lymph nodes measuring up to 3.8 cm somewhat encasing hilar structures. Subtle bilateral largely upper lobe airspace opacities may reflect an infectious process., Patient was referred to pulmonology, she underwent bronchoscopy on January 23, 2021, left upper lobe endobronchial biopsy showed single fragment of focal squamous dysplasia, no malignancy station 7 lymph node showed no malignancy station 10 L ultrasound-guided endobronchial biopsy shows no malignancy, , Underwent CT PET scan on January 27, 2021 which shows a 1.3 cm medial right upper lobe nodule has SUV of 3.6, a 1.4 cm right upper lobe groundglass opacity does not demonstrate significant activity. Other tiny right-sided nodules in the right lower right upper lobes are FDG negative. A 4.50 x 3.4 cm left hilar mass has SUV of 10.2 indicating malignancy. A 4.1 x 2.1 cm prevascular lymph node has SUV 10.2 as well. Other mediastinal lymph nodes are subcentimeter in size and without suspicious activity. A lytic lesion in the L5 vertebral body has SUV of 7.6, significant unifocal osseous metastatic disease. patient was referred to Dr. Enciso for mediastinoscopy, on February 19, 2021 she underwent left-sided [place] procedure with biopsy and the prelim pathology report confirmed AP window mass/lymph node shows positive for malignancy consistent with squamous cell carcinoma further immunohistochemistry to confirm is pending including PD-L1 status. Patient denies any history of hemoptysis prior to that patient denies any history of smoking but she is a former smoker, patient denies any back pain, denies any dysphagia, denies any headaches or blurred vision or double vision except when she spent too much time on the computer done sometimes she feels blurred. No fever chills, no sore throat no postnasal discharge or drip. Came for follow-up, denies any specific complaints, denies any fever chills denies any nausea or vomiting denies any diarrhea or constipation, denies any hemoptysis or hematemesis, as per patient she is scheduled to see medical oncologist at [facility] on March 13, 2021 moreover patient is moving with her mother in [facility] and she will receive her further treatments there Medications: Acetaminophen 1 Capsule (of 325 mg) Oral four times a day PRN, Adult Aspirin EC Low Strength 1 Tablet (of 81 mg) Tablet, enteric coated Oral daily, ALPRAZolam ER 1 Tablet (of 3 mg) Tablet SR 24 HR Oral daily, Ascorbic Acid 1 Capsule (of 500 mg) Oral daily, B-1 1 Tablet (of 100 mg) Oral daily, Calcium Citrate Malate-Vit D 2 Tablet (of 250-100 mg - Units) Oral daily, Daily Multiple Vitamins 1 Tablet Oral daily, Dicyclomine HCl 1 Tablet (of 20 mg) Oral four times a day PRN, FLUoxetine HCl 1 Capsule (of 40 mg) Oral every am, Omeprazole 1 Capsule (of 20 mg) Capsule Delayed Release Oral b.i.d., Spiriva Respimat 2 Puff(s) (of 2.5 mcg/act) Aerosol, solution Inhalation daily PRN, Zinc 1 Tablet (of 50 mg) Oral daily Allergies: No Known Allergies. Review of Systems: Review of Systems is not available for this patient. Vital Signs: Performed on Mar 05, 2021 08:08 Height - 69 in Weight - 212.2 lbs (LOW) BSA - 2.12 sq.m BMI - 31.34 (HIGH) Temperature - 98.4 F Pulse - 75 /min Respiration - 18 /min BP - 123/81 mm(hg) O2 Sat - 94 % (LOW) Pain - 0 Fatigue - 7 Performance Status: 0 - Fully active, able to carry on all predisease activities without restrictions. (ECOG) Physical Examination: ENMT - No mouth sores, no thrush, no jaundice, Respiratory - Lungs are clear to auscultation, Cardiovascular - Regular rate and rhythm of, Abdomen - Soft, bowel sounds present, Extremities - No visible edema. Lab/Imaging: Most recent lab results are not available for this patient. 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 Lytic osseous metastatic disease at L5 History of pulmonary histoplasmosis involving bilateral lung with residual bilateral lung nodules and lymphadenopathy as per patient, being followed by pulmonology and PMD, in the past treated with some kind of pill on many occasion. 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 Patient was advised to call us in case she needs anything and wished her good luck for her treatments. Signed By: Satish Lyle M.D. <<Signature on File>>
== END 2021-03-05 07:50 | disposition home or self-care (01) ==
PROVIDERS: PCP Family Medicine; Visit Provider Internal Medicine Hematology & Oncology
DX: C34.11 Malignant neoplasm of upper lobe, right bronchus or lung (principal); C77.8 Secondary and unspecified malignant neoplasm of lymph nodes of multiple regions; C79.51 Secondary malignant neoplasm of bone; C78.02 Secondary malignant neoplasm of left lung; F33.42 Major depressive disorder, recurrent, in full remission; F41.0 Panic disorder [episodic paroxysmal anxiety]; B39.1 Chronic pulmonary histoplasmosis capsulati; Z79.899 Other long term (current) drug therapy
CPT/HCPCS: 99214

== ENCOUNTER → 2021-08-23 07:21 | Outpatient (BNVA) | payer MEDICARE, MEDICAID, SELFPAY | PROVIDERS: PCP Family Medicine; Visit Provider Psychiatry & Neurology Psychiatry | DX: F33.42 Major depressive disorder, recurrent, in full remission (principal); F41.0 Panic disorder [episodic paroxysmal anxiety] | CPT/HCPCS: 99214 ==

== ENCOUNTER → 2021-11-22 07:24 | Outpatient (BNVA) | payer MEDICARE, MEDICAID, SELFPAY | PROVIDERS: PCP Family Medicine; Visit Provider Psychiatry & Neurology Psychiatry | DX: F33.42 Major depressive disorder, recurrent, in full remission (principal); F41.0 Panic disorder [episodic paroxysmal anxiety] | CPT/HCPCS: 99213 ==